=== PATIENT | female | born 1940 | race Caucasian/White ===

== ENCOUNTER 2018-07-15 06:59 | Day surgery (SDC) | payer MEDICARE, OTHER ==
[2018-07-15 07:36] VITALS: BMI 27.8
--- NOTE | 2018-07-15 09:02 | RAD ---
LUMBAR SPINE FOUR VIEWS INCLUDING FLEXION AND EXTENSION STANDING VIEWS: History: Lumbar spondylolisthesis and radiculopathy. FINDINGS: Dorsal column stimulator leads are noted extending up into the thoracic spines. There is severe multi level disc osteophytosis and facet arthrosis. There is severe anterolisthesis of L4 on L5, possibly v ivan slightly worse with flexion and extension. Stable anterolisthesis of C3 on C4. IMPRESSION: Grade 1 anterolisthesis of L4 on L5 showing very little difference, slightly more prominent anterolis thesis in flexion and extension. Stable anterolisthesis of L3 on L4. Lumbar spondylosis. Dorsal colum n stimulator lead. POS: TPC
[2018-07-15] MEDS ORDERED: Iopamidol-M 200 41% 20 ML VIAL ONE (10:28)
--- NOTE | 2018-07-15 11:25 | CT ---
CT LUMBAR SPINE WITH CONTRAST: (CT LUMBAR MYELOGRAM) Date: 07/15/18 HISTORY: 77-year-old female with low back pain and left lumbar radiculopathy. FINDINGS: There are five lumbar-type vertebrae. Vertebral body heights are maintained. No high grade scoliosis. Incidental finding of tiny calcified gallstone. Conus medullaris terminates at L1-2. Dorsal column s cristian cord stimulator leads enter the spinal canal at T12-L1, and ascend along the posterior epidural space. The lower portion of the spinal cord from lower T11 to the conus, has normal diameter, shape, and position. T11-12: Moderate disc space narrowing. Mild disc bulge. No high grade central stenosis. Mild to mode rate right neural foraminal stenosis. No left neural foraminal stenosis. T12-L1: Normal. L1-2: Normal. Conus medullaris terminates at this level. L2-3: No central stenosis. Disc space maintained. Mild bilateral neural foraminal stenosis, right gr eater than left. L3-4: Severe bilateral degenerative facet disease causes a Grade I anterolisthesis of L3 on L4. No s pondylolysis. Diffuse disc bulge. Mild to moderate disc space narrowing. Moderate ligamentum flavum t hickening. Moderate central spinal canal stenosis. Moderate bilateral neural foraminal stenosis. L4-5: Severe bilateral degenerative facet disease. There is no pars defect on the right side, but th ere is a pars interarticularis defect on the left. There is Grade II anterolisthesis of L4 on L5, whi ch appears to be due mainly to the severe facet DJD. Vacuum disc phenomenon. End plate irregularity a nd sclerosis. Moderate-severe right neural foraminal stenosis, superiorly displacing and mildly defor ladonna the exiting right L3 nerve root. Severe left neural foraminal stenosis with superior displacemen t and deformation of the exiting left L4 nerve root. The central spinal canal and thecal sac stenosis is mild to moderate. Ventral aspect of thecal sac is asymmetrically more effaced on the right side t roman the left. There is a left hemilaminotomy defect. L5-S1: Disc space is maintained. No neural foraminal stenosis. No central stenosis. The facet DJD is mild. This level is essentially normal. IMPRESSION: 1. Grade II spondylolisthesis at L4-5 where there is severe bilateral facet osteoarthrosis and unila teral left L4 spondylolysis. 2. Moderate to severe right neural foraminal stenosis and severe left neural foraminal stenosis at L 4-5, with impingement on both bilateral L4 exiting nerve roots, especially the left. 3. Grade I spondylolisthesis at L3-4 due to severe facet osteoarthrosis at that level. 4. Moderate central spinal canal stenosis at L3-4 and mild to moderate central spinal canal stenosis at L4-5. 5. Dorsal column spinal cord stimulator. 6. Incidental finding of mild cholelithiasis. POS: DENISSE
--- NOTE | 2018-07-15 11:46 | RAD ---
MYELOGRAM LUMBAR: Date: 07/15/18 HISTORY: 77-year-old female with low back pain and lumbar radiculopathy. TECHNIQUE: Signed, informed consent obtained. Patient placed prone SPANISH position on fluoroscopy table, after scou t radiographs including flexion and extension views, were obtained. Skin of lower back was prepared a nd draped in the usual sterile fashion. 25 gauge needle was used to apply buffered lidocaine. 22 gaug e spinal needle advanced from right paramedian approach at L2-3 level under brief, intermittent fluor oscopy. Upon return of clear CSF, a total of 10 mL of Isovue-M [id number] was injected intrathecally. Needle was removed. The patient tolerated the procedure well. No complications. Total fluoroscopy time: 2.3 minutes IMPRESSION: 1. Successful lumbar myelogram. 2. See separate report of CT myelogram. POS: ROJELIO
== END 2018-07-15 09:55 | disposition home or self-care (01) ==
LOC: RAD 06:59 → EDSTATUS 08:00 → RAD 09:55
PROVIDERS: ATTEND Surgery
PROC: B01B1ZZ Fluoroscopy of Spinal Cord using Low Osmolar Contrast (ICD-10-PCS; principal; 2018-07-15)
DX: M43.16 Spondylolisthesis, lumbar region (principal); M47.26 Other spondylosis with radiculopathy, lumbar region; M48.061 Spinal stenosis, lumbar region without neurogenic claudication; Z79.02 Long term (current) use of antithrombotics/antiplatelets; Z79.82 Long term (current) use of aspirin; Z79.899 Other long term (current) drug therapy; Z95.1 Presence of aortocoronary bypass graft; Z95.5 Presence of coronary angioplasty implant and graft; Z96.89 Presence of other specified functional implants; Z98.890 Other specified postprocedural states
CPT/HCPCS: 62304; 72120; 72132; Q9966

== ENCOUNTER 2018-09-10 00:09 | Outpatient (CLI) | payer MEDICARE, OTHER ==
[2018-09-10 14:08] LABS: Hemoglobin 14.1 g/dL (12.0-16.0); Mean Corpuscular HGB CONC 32.9 g/dL (32.0-36.0); Mean Corpuscular Hemoglobin 34.3 pg (27.0-31.0); Mean Platelet Volume 6.8 fL (7.4-10.4); Platelet Count 390 thou/uL (130-400); Red Blood Cell (RBC) Count 4.11 mill/uL (4.20-5.40); White Blood Cell (WBC) Count 8.1 thou/uL (4.8-10.8)
[2018-09-10 14:17] LABS: PTT 34.6 SEC (22.9-36.1); Prothrombin Time 13.6 SEC (12.0-14.7)
[2018-09-10 14:37] LABS: Anion Gap 13 mmol/L (10-20); BUN (Urea Nitrogen) 20 mg/dL (9.8-20.1); Calc. Creatinine Clearance 0 mL/min (70-130); Calcium 10.1 mg/dL (7.8-10.44); Carbon Dioxide 27 mmol/L (23-31); Chloride 106 mmol/L (98-107); Estimated GFR-MDRD 65; Glucose 76 mg/dL (83-110); Sodium 142 mmol/L (136-145)
== END 2018-09-10 00:10 | disposition home or self-care (01) ==
LOC: LABBT 00:09
PROVIDERS: ATTEND Surgery
DX: Z01.812 Encounter for preprocedural laboratory examination (principal); M54.16 Radiculopathy, lumbar region; M48.061 Spinal stenosis, lumbar region without neurogenic claudication
CPT/HCPCS: 80048; 85027; 85610; 85730; 87081

== ENCOUNTER 2018-09-10 12:00 | Inpatient (IN) | payer MEDICARE, OTHER ==
[2018-09-10 12:37] VITALS: BMI 28.0
[2018-09-17] MEDS ORDERED: Sodium Chloride 0.9% 10 ML ONE (10:30)
[2018-09-17] MEDS ORDERED: Thrombin 5000 UNITS/5 ML VIAL ONE ×2 (10:30→13:12)
[2018-09-17] MEDS ORDERED: Bacitracin Zinc Ointment 30 gm TUBE ONE (10:30)
[2018-09-17] MEDS ORDERED: Fentanyl 250 MCG/5 ML VIAL ONE (10:32)
[2018-09-17] MEDS ORDERED: Ketamine 50 MG/ML (10ML VIAL) ONE (10:32)
[2018-09-17] MEDS ORDERED: Albumin 5% 500 ML ONE (10:32)
[2018-09-17] MEDS ORDERED: Meperidine HCl/PF 25 MG/ML VIAL SLOW IVP PRN (14:43)
[2018-09-17] MEDS ORDERED: Morphine Sulfate 2 MG/ML SYRINGE SLOW IVP PRN (14:43)
[2018-09-17] MEDS ORDERED: Promethazine HCl 25 MG/ML VIAL SLOW IVP PRN (14:43)
[2018-09-17] MEDS ORDERED: Promethazine HCl 25 MG/ML VIAL IM PRN (14:43)
[2018-09-17] MEDS ORDERED: Ondansetron HCl/PF 4 MG/2 ML Vial IVP PRN (14:43)
[2018-09-17] MEDS ORDERED: HYDROmorphone 2 MG/ML VIAL SLOW IVP PRN (14:43)
[2018-09-17] MEDS ORDERED: PACU-Morphine 4MG/ML VIAL SLOW IVP PRN (14:43)
[2018-09-17] MEDS ORDERED: Glycopyrrolate 0.2 MG/ML 5 ML SYRINGE ONE (15:24)
[2018-09-17] MEDS ORDERED: Lidocaine 1% PF 5 ML VIAL ONE (15:24)
[2018-09-17] MEDS ORDERED: Metoclopramide HCl 10 MG/2 ML VIAL ONE (15:24)
[2018-09-17] MEDS ORDERED: Ondansetron PF 4 MG/2 ML Vial ONE (15:24)
[2018-09-17] MEDS ORDERED: ePHEDrine 50 MG/ML VIAL ONE (15:24)
[2018-09-17] MEDS ORDERED: Rocuronium Bromide 10 MG/ML (10ML VIAL) ONE (15:24)
[2018-09-17] MEDS ORDERED: PROPOFOL 200 MG/20 ML VIAL ONE (15:24)
[2018-09-17] MEDS ORDERED: Dexamethasone 20 MG/5 ML VIAL ONE (15:24)
[2018-09-17] MEDS ORDERED: Milk Of Magnesia 30 ML UDCUP PO PRN (15:29)
[2018-09-17] MEDS ORDERED: Promethazine HCl 25 MG/ML VIAL IVPB PRN (15:29)
[2018-09-17] MEDS ORDERED: Mag-Al 1200 mg/1200 mg/30 ML UDCUP PO PRN (15:29)
[2018-09-17] MEDS ORDERED: Bisacodyl 10 MG SUPP PR PRN (15:29)
[2018-09-17] MEDS ORDERED: Fleet Enema 133 ML BOT PR PRN (15:30)
[2018-09-17] MEDS ORDERED: Gabapentin 100 MG CAP PO PRN (15:33)
[2018-09-17] MEDS ORDERED: Fentanyl 100 MCG/2 ML VIAL ONE ×3 (15:41→18:21)
[2018-09-17] MEDS: CEFAZOLIN 2 GM in Premix Bag 1 BAG IVPB SCH (19:47)
[2018-09-17] MEDS: traMADol HCl 50 MG TAB PO PRN (20:18)
[2018-09-17] MEDS: Carvedilol 3.125 MG TAB PO SCH (20:18)
[2018-09-17] MEDS: clonazePAM 1 MG TAB PO SCH (20:18)
[2018-09-17] MEDS: Sodium Chloride 0.9% 1,000 ML IV SCH (20:19)
[2018-09-18] MEDS: CEFAZOLIN 2 GM in Premix Bag 1 BAG IVPB SCH ×4 (00:09→23:32)
[2018-09-18] MEDS: HYDROcodone/Acetaminophen 7.5/325 mg Tablet PO PRN ×3 (00:20→19:16)
[2018-09-18] MEDS: Sodium Chloride 0.9% 1,000 ML IV SCH ×2 (04:04→16:45)
[2018-09-18 05:45] LABS: Anion Gap 11 mmol/L (10-20); BUN (Urea Nitrogen) 16 mg/dL (9.8-20.1); Calc. Creatinine Clearance 63 mL/min (70-130); Carbon Dioxide 26 mmol/L (23-31); Chloride 106 mmol/L (98-107); Estimated GFR-MDRD 70; Glucose 111 mg/dL (83-110); Potassium 4.1 mmol/L (3.5-5.1); Sodium 139 mmol/L (136-145)
[2018-09-18 06:41] LABS: #Basophils 0.1 thou/uL (0.0-0.2); #Lymphocytes 1.3 thou/uL (1.20-3.40); #Neutrophils 10.1 thou/uL (1.40-6.50); %Basophils 0.6 % (0.0-1.0); %Eosinophils 0.1 % (0.0-10.0); %Lymphocytes 10.5 % (21.0-51.0); %Monocytes 7.9 % (0.0-10.0); %Neutrophils 80.8 % (42.0-75.0); Hemoglobin 9.5 g/dL (12.0-16.0); MDiff Complete? YES; Macrocytosis SLIGHT = 6-15 cells (100X) (0-5/hpf); Mean Corpuscular HGB CONC 32.7 g/dL (32.0-36.0); Mean Corpuscular Hemoglobin 34.6 pg (27.0-31.0); Platelet Count 261 thou/uL (130-400); RBC Distribution Width 12.7 % (11.5-14.5); Red Blood Cell (RBC) Count 2.76 mill/uL (4.20-5.40); White Blood Cell (WBC) Count 12.4 thou/uL (4.8-10.8)
[2018-09-18] MEDS: Floranex Packet PO SCH (09:41)
[2018-09-18] MEDS: Ezetimibe 10 MG TAB PO SCH (09:41)
[2018-09-18] MEDS: Loratadine 10 MG TAB PO SCH (09:42)
[2018-09-18] MEDS: Furosemide 20 MG TAB PO SCH (09:42)
[2018-09-18] MEDS: tiZANidine HCl 4 MG TAB PO PRN ×2 (09:42→22:10)
[2018-09-18] MEDS: Folic Acid 1 MG TAB PO SCH (09:42)
[2018-09-18] MEDS: Ascorbic Acid 500 mg Chewable Tablet PO SCH (09:42)
[2018-09-18] MEDS: traMADol HCl 50 MG TAB PO PRN (09:43)
--- NOTE | 2018-09-18 13:12 | PRG ---
DATE OF SERVICE: 09/18/2018 SUBJECTIVE: Ms. Vivar is now postoperative day #1 from L3-L5 decompression and fusion. She is doing well and up walking. She states she has had resolution in her leg pain. As expected, she has postoperative incisional pain. We will continue to mobilize her. Anticipate dismissal perhaps sometime this weekend. Job ID: [id number]
[2018-09-18] MEDS: Carvedilol 3.125 MG TAB PO SCH ×2 (14:57→19:54)
[2018-09-18] MEDS: Losartan 25 MG TAB PO SCH (14:57)
--- NOTE | 2018-09-18 15:34 | OP ---
DATE OF PROCEDURE: 09/17/2018 [employer]IVATE SECURITY GUARD: Sonny Ackerman PA-C PREPROCEDURE DIAGNOSIS: Lumbar stenosis with multilevel spondylolisthesis with low back and leg pain. POSTPROCEDURE DIAGNOSIS: Lumbar stenosis with multilevel spondylolisthesis with low back and leg pain. PROCEDURES PERFORMED: 1. L3-L4 laminectomy, partial facetectomy, and foraminotomies. 2. Bilateral L4-L5 revision, hemilaminotomy, foraminotomy for decompression of the nerve roots with removal of the pars bilaterally. 3. L3, L4, L5 posterior instrumented stabilization. 4. Posterior lateral fusion L3, L4, L5 with local bone autograft obtained from same incision allograft and BMP. DESCRIPTION OF PROCEDURE: After informed consent was obtained from the patient, the patient was brought to the OR. Proper patient, pause, and identification were carried out. She was placed under excellent endotracheal anesthesia and positioned prone on the OR table. All appropriate points were padded. We identified the L3, L4, L5 dorsal spines. Linear tuyet was made over this region. The prior incision was also identified. The midline lumbar wound following sterile cleansing, preparation and draping, we proceeded to the L3, L4, L5 segments. Localization film confirmed the area of interest following exposure of the L3, L4, L5 lamina, facet complexes in the transverse processes. We then performed L3-L4 laminectomies, partial facetectomies, and foraminotomies with bilateral revision of L3-L4 hemilaminotomies, foraminotomies, and removal of the pars to achieve complete decompression of the L4 nerve roots and the traversing L5 nerve roots. We should note that she had a left L4 spondylolysis and again, the pars was completely removed. We then placed with gross and fluoroscopic visualization pedicle screws at L3, L4, L5 with rods. Final tightening occurred. Copious irrigation occurred throughout as did maximizing hemostasis. The posterior lateral regions were then decorticated. Local bone autograft was obtained from same incision. Allograft and BMP were laid out to the sides bilaterally at L3, L4, L5, and we had excellent decompression and was pleased with stabilization. Copious irrigation occurred. We maximized the hemostasis. The wound was then closed in anatomic layers following sprinkling of vancomycin powder. The patient emerged from anesthesia. Job ID: [id number]
[2018-09-18] MEDS ORDERED: Sodium Chloride 0.9% 500 ML IVPB SCH (16:45)
[2018-09-18] MEDS: clonazePAM 1 MG TAB PO SCH (19:52)
--- NOTE | 2018-09-18 21:57 | PDOC.PN ---
- Subjective Encounter Start Date: 09/18/18 Encounter Start Time: 14:45 Subjective: pt up in bed complains of pain around her sugical site. - Objective Vital Signs & Weight: Vital Signs (12 hours) Temp Pulse Resp BP BP Pulse Ox 09/18/18 20:00 98.1 F 81 20 113/68 95 09/18/18 15:10 98 F 72 18 82/42 L 91 L 09/18/18 11:20 92 L 09/18/18 11:15 98.2 F 72 14 91/56 L 83 L Weight Weight 146 lb I&O: 09/17/18 09/18/18 09/19/18 06:59 06:59 06:59 Intake Total 1275 2050 Output Total 375 500 Balance 900 1550 Result Diagrams: 09/18/18 04:39 09/18/18 04:39 Phys Exam - Physical Examination Neck: no nodes, no JVD, supple, full ROM Respiratory: no wheezing, no rales, no rhonchi, wheezing present, clear to auscultation bilateral Cardiovascular: RRR, no significant murmur, no rub, gallop, irregular Gastrointestinal: soft, non-tender, no distention, positive bowel sounds Musculoskeletal: no edema, pulses present, edema present Dx/Plan (1) Hypertension Code(s): I10 - ESSENTIAL (PRIMARY) HYPERTENSION Status: Acute (2) Rheumatoid arteritis Code(s): 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 -: pt was give 500ml ns bolus and rate increased to 100cc/hr -: pain meds per surgery * . Review of Systems - Review of Systems Respiratory: negative: Cough, Dry, Shortness of Breath, Hemoptysis, SOB with Excertion, Pleuritic Pain, Sputum, Wheezing Cardiovascular: negative: chest pain, palpitations, orthopnea, paroxysmal nocturnal dyspnea, edema, light headedness, other Gastrointestinal: negative: Nausea, Vomiting, Abdominal Pain, Diarrhea, Constipation, Melena, Hematochezia, Other Genitourinary: negative: Dysuria, Frequency, Incontinence, Hematuria, Retention , Other - Medications/Allergies Allergies/Adverse Reactions: Allergies Allergy/AdvReac Type Severity Reaction Status Date / Time No Known Allergies Allergy Verified 09/17/18 20:10 Medications: Current Medications Acetaminophen (Tylenol) 650 mg PO Q4H PRN PRN Reason: Headache/Fever or Pain Acetaminophen/Codeine Phosphate (Tylenol #3) 1 tab PO Q3H PRN PRN Reason: Mild Pain (1-3) Hydrocodone Bitart/Acetaminophen ([place] 7.5/325) 2 tab PO Q4H PRN PRN Reason: Moderate Pain (4-6) Last Admin: 09/18/18 19:16 Dose: 2 tab Acidophilus (Floranex) 1 gm PO DAILY [facility] Last Admin: 09/18/18 09:41 Dose: 1 gm Al Hydroxide/Mg Hydroxide (Maalox) 30 ml PO Q4H PRN PRN Reason: Indigestion Ascorbic Acid (Vitamin C) 1,000 mg PO DAILY [facility] Last Admin: 09/18/18 09:42 Dose: 1,000 mg Bisacodyl (Dulcolax) [address] Q12H PRN PRN Reason: Constipation Carvedilol (Coreg) 6.25 mg PO BID [facility] Last Admin: 09/18/18 19:54 Dose: Not Given Citalopram Hydrobromide (Celexa) 20 mg PO DAILY [facility] Clonazepam (Klonopin) 3 mg PO HS [facility] Last Admin: 09/18/18 19:52 Dose: 3 mg Ezetimibe (Zetia) 10 mg PO DAILY [facility] Last Admin: 09/18/18 09:41 Dose: 10 mg Folic Acid (Folvite) 1 mg PO DAILY [facility] Last Admin: 09/18/18 09:42 Dose: 1 mg Furosemide (Lasix) 20 mg PO DAILY [facility] Last Admin: 09/18/18 09:42 Dose: 20 mg Gabapentin (Neurontin) 100 mg PO HS PRN PRN Reason: Pain Cefazolin Sodium/Dextrose 2 gm (/ Device) 50 mls @ 100 mls/hr IVPB Q8H [facility] Stop: 09/19/18 15:31 Last Admin: 09/18/18 15:17 Dose: 50 mls Sodium Chloride (Normal Saline 0.9%) 1,000 mls @ 100 mls/hr IV .Q10H [facility] Last Admin: 09/18/18 16:45 Dose: 1,000 mls Loratadine (Claritin) 10 mg PO DAILY [facility] Last Admin: 09/18/18 09:42 Dose: 10 mg Losartan Potassium (Cozaar) 50 mg PO DAILY [facility] Last Admin: 09/18/18 14:57 Dose: Not Given Magnesium Hydroxide (Milk Of Magnesium) 30 ml PO Q12H PRN PRN Reason: Constipation Morphine Sulfate (Morphine) 2 mg SLOW IVP Q1H PRN PRN Reason: Severe Pain (7-10) Pantoprazole Sodium (Protonix) 40 mg PO DAILY [facility] Last Admin: 09/18/18 09:41 Dose: 40 mg Promethazine HCl (Phenergan) 12.5 mg IVPB Q4H PRN PRN Reason: Nausea/Vomiting Sodium Biphosphate/Sodium Phosphate (Fleet Enema) [address] 1530 PRN PRN Reason: Constipation Sodium Chloride (Flush - Normal Saline) 10 ml IVF PRN PRN PRN Reason: Saline Flush Tizanidine HCl (Zanaflex) 4 mg PO TID PRN PRN Reason: Muscle Spasm Last Admin: 09/18/18 09:42 Dose: 4 mg Tramadol HCl (Ultram) 50 mg PO Q6H PRN PRN Reason: Mild Pain (1-3) Last Admin: 09/18/18 09:43 Dose: 50 mg
[2018-09-19] MEDS: HYDROcodone/Acetaminophen 7.5/325 mg Tablet PO PRN (03:37)
[2018-09-19] MEDS: tiZANidine HCl 4 MG TAB PO PRN (06:42)
[2018-09-19] MEDS: CEFAZOLIN 2 GM in Premix Bag 1 BAG IVPB SCH ×2 (07:15→15:30)
[2018-09-19] MEDS: Citalopram 20 MG TAB PO SCH ×2 (07:48→09:07)
[2018-09-19 07:53] LABS: #Basophils 0.1 thou/uL (0.0-0.2); #Eosinphils 0.2 thou/uL (0.0-0.7); #Lymphocytes 3.3 thou/uL (1.20-3.40); #Monocytes 1.1 thou/uL (0.11-0.59); #Neutrophils 5.2 thou/uL (1.40-6.50); %Basophils 1.1 % (0.0-1.0); %Eosinophils 2.5 % (0.0-10.0); %Lymphocytes 33.3 % (21.0-51.0); %Monocytes 10.9 % (0.0-10.0); %Neutrophils 52.3 % (42.0-75.0); Hemoglobin 8.5 g/dL (12.0-16.0); Mean Corpuscular HGB CONC 31.5 g/dL (32.0-36.0); Mean Corpuscular Hemoglobin 33.5 pg (27.0-31.0); Platelet Count 222 thou/uL (130-400); Red Blood Cell (RBC) Count 2.53 mill/uL (4.20-5.40)
--- NOTE | 2018-09-19 08:08 | PRG ---
DATE OF SERVICE: 09/19/2018 SUBJECTIVE: I saw Ms. Vivar in her hospital room this morning. She is 2 days out from a lumbar decompression and fusion. She still has a Fabian in place. She had a reasonable night overnight. She is sore from her surgery, but feels as though her legs have improved. OBJECTIVE: Ms. Vivar had a bit of a low blood pressure at 90/54 at midnight, this came up a bit this morning to the 100s. Her other vital signs have been stable. Lower extremity examination does not show any new neurological deficit and her dressing is dry. ASSESSMENT AND PLAN: My plan for Ms. Vivar is to ensure that she can get in and out of bed safely and use at least the bedside commode or walk to the bathroom before removing her Fabian. Once the Fabian is out, she becomes independent for activities of daily living, then she would be ready for discharge. If that happens this afternoon, we will make arrangements for that. If she needs another day to work on her independence, we will keep her. Job ID: [id number]
[2018-09-19] MEDS: Folic Acid 1 MG TAB PO SCH (09:07)
[2018-09-19] MEDS: Ezetimibe 10 MG TAB PO SCH (09:07)
[2018-09-19] MEDS: Ascorbic Acid 500 mg Chewable Tablet PO SCH (09:07)
[2018-09-19] MEDS: Furosemide 20 MG TAB PO SCH (09:07)
[2018-09-19] MEDS: Loratadine 10 MG TAB PO SCH (09:07)
[2018-09-19] MEDS: Floranex Packet PO SCH (09:07)
[2018-09-19] MEDS: Sodium Chloride 0.9% 1,000 ML IV SCH (09:16)
--- NOTE | 2018-09-19 10:21 | PDOC.PN ---
- Subjective Encounter Start Date: 09/19/18 Encounter Start Time: 08:20 Patient seen and examined. No new complaints. No overnight events - Objective MAR Reviewed: Yes Vital Signs & Weight: Vital Signs (12 hours) Temp Pulse Resp BP Pulse Ox 09/19/18 08:15 98.4 F 76 15 91/58 L 93 L 09/19/18 03:50 98.3 F 90 20 103/65 95 09/18/18 23:44 98.5 F 80 18 90/54 L 96 Weight Weight 146 lb I&O: 09/18/18 09/19/18 09/20/18 06:59 06:59 06:59 Intake Total 1275 3490 Output Total 375 900 Balance 900 2590 Result Diagrams: 09/19/18 07:24 09/18/18 04:39 Phys Exam - Physical Examination Constitutional: NAD HEENT: PERRLA, moist MMs, sclera anicteric Neck: no JVD, supple Respiratory: no wheezing, no rales, no rhonchi Cardiovascular: RRR, no significant murmur, no rub Gastrointestinal: soft, non-tender, no distention, positive bowel sounds Musculoskeletal: no edema, pulses present Neurological: non-focal, normal sensation Lymphatic: no nodes Psychiatric: normal affect Skin: no rash, normal turgor Dx/Plan (1) S/P lumbar laminectomy Code(s): Z98.890 - OTHER SPECIFIED POSTPROCEDURAL STATES Status: Acute (2) Anxiety and depression Code(s): F41.9 - ANXIETY DISORDER, UNSPECIFIED; F32.9 - MAJOR DEPRESSIVE DISORDER, SINGLE EPISODE, UNSPECIFIED Status: Chronic (3) CAD (coronary artery disease) Code(s): I25.10 - ATHSCL HEART DISEASE OF [place] CORONARY ARTERY W/O ANG PCTRS Status: Chronic (4) COPD (chronic obstructive pulmonary disease) Status: Chronic (5) GERD (gastroesophageal reflux disease) Code(s): K21.9 - GASTRO-ESOPHAGEAL REFLUX DISEASE WITHOUT ESOPHAGITIS Status: Chronic (6) Hypertension Code(s): I10 - ESSENTIAL (PRIMARY) HYPERTENSION Status: Chronic (7) Macrocytic anemia Code(s): D53.9 - NUTRITIONAL ANEMIA, UNSPECIFIED Status: Chronic (8) Rheumatoid arthritis Code(s): M06.9 - RHEUMATOID ARTHRITIS, UNSPECIFIED Status: Chronic - Plan cont current plan of care, PT/OT * medication reviewed as below * symptomatic treatment * pain control * medically stable * continue gentle IVF * hold BP meds for SBP <120. * code status- full code * continue selected home meds Review of Systems - Review of Systems Constitutional: negative: fever, chills, sweats, weakness, malaise, other ENT: negative: Ear Pain, Ear Discharge, Nose Pain, Nose Discharge, Nose Congestion, Mouth Pain, Mouth Swelling, Throat Pain, Throat Swelling, Other Respiratory: negative: Cough, Dry, Shortness of Breath, Hemoptysis, SOB with Excertion, Pleuritic Pain, Sputum, Wheezing Cardiovascular: negative: chest pain, palpitations, orthopnea, paroxysmal nocturnal dyspnea, edema, light headedness, other Gastrointestinal: negative: Nausea, Vomiting, Abdominal Pain, Diarrhea, Constipation, Melena, Hematochezia, Other Genitourinary: negative: Dysuria, Frequency, Incontinence, Hematuria, Retention , Other Musculoskeletal: Back Pain. negative: Neck Pain, Shoulder Pain, Arm Pain, Hand Pain, Leg Pain, Foot Pain, Other - Medications/Allergies Allergies/Adverse Reactions: Allergies Allergy/AdvReac Type Severity Reaction Status Date / Time No Known Allergies Allergy Verified 09/17/18 20:10 Medications: Current Medications Acetaminophen (Tylenol) 650 mg PO Q4H PRN PRN Reason: Headache/Fever or Pain Acetaminophen/Codeine Phosphate (Tylenol #3) 1 tab PO Q3H PRN PRN Reason: Mild Pain (1-3) Hydrocodone Bitart/Acetaminophen ([place] 7.5/325) 2 tab PO Q4H PRN PRN Reason: Moderate Pain (4-6) Last Admin: 09/19/18 03:37 Dose: 2 tab Acidophilus (Floranex) 1 gm PO DAILY [facility] Last Admin: 09/19/18 09:07 Dose: 1 gm Al Hydroxide/Mg Hydroxide (Maalox) 30 ml PO Q4H PRN PRN Reason: Indigestion Ascorbic Acid (Vitamin C) 1,000 mg PO DAILY [facility] Last Admin: 09/19/18 09:07 Dose: 1,000 mg Bisacodyl (Dulcolax) 10 mg MD Q12H PRN PRN Reason: Constipation Carvedilol (Coreg) 6.25 mg PO BID [facility] Last Admin: 09/18/18 19:54 Dose: Not Given Citalopram Hydrobromide (Celexa) 20 mg PO DAILY [facility] Last Admin: 09/19/18 09:07 Dose: 20 mg Clonazepam (Klonopin) 3 mg PO HS [facility] Last Admin: 09/18/18 19:52 Dose: 3 mg Ezetimibe (Zetia) 10 mg PO DAILY [facility] Last Admin: 09/19/18 09:07 Dose: 10 mg Folic Acid (Folvite) 1 mg PO DAILY [facility] Last Admin: 09/19/18 09:07 Dose: 1 mg Furosemide (Lasix) 20 mg PO DAILY [facility] Last Admin: 09/19/18 09:07 Dose: 20 mg Gabapentin (Neurontin) 100 mg PO HS PRN PRN Reason: Pain Cefazolin Sodium/Dextrose 2 gm (/ Device) 50 mls @ 100 mls/hr IVPB Q8H [facility] Stop: 09/19/18 15:31 Last Admin: 09/19/18 07:15 Dose: 50 mls Sodium Chloride (Normal Saline 0.9%) 1,000 mls @ 100 mls/hr IV .Q10H [facility] Last Admin: 09/19/18 09:16 Dose: 1,000 mls Loratadine (Claritin) 10 mg PO DAILY [facility] Last Admin: 09/19/18 09:07 Dose: 10 mg Losartan Potassium (Cozaar) 50 mg PO DAILY [facility] Last Admin: 09/18/18 14:57 Dose: Not Given Magnesium Hydroxide (Milk Of Magnesium) 30 ml PO Q12H PRN PRN Reason: Constipation Morphine Sulfate (Morphine) 2 mg SLOW IVP Q1H PRN PRN Reason: Severe Pain (7-10) Pantoprazole Sodium (Protonix) 40 mg PO DAILY [facility] Last Admin: 09/19/18 09:07 Dose: 40 mg Promethazine HCl (Phenergan) 12.5 mg IVPB Q4H PRN PRN Reason: Nausea/Vomiting Sodium Biphosphate/Sodium Phosphate (Fleet Enema) 133 ml MD 1530 PRN PRN Reason: Constipation Sodium Chloride (Flush - Normal Saline) 10 ml IVF PRN PRN PRN Reason: Saline Flush Tizanidine HCl (Zanaflex) 4 mg PO TID PRN PRN Reason: Muscle Spasm Last Admin: 09/19/18 06:42 Dose: 4 mg Tramadol HCl (Ultram) 50 mg PO Q6H PRN PRN Reason: Mild Pain (1-3) Last Admin: 09/18/18 09:43 Dose: 50 mg
[2018-09-19] MEDS: Ketorolac Tromethamine 30 MG/ML VIAL IVP PRN ×2 (15:29→22:39)
[2018-09-19] MEDS: Acetaminophen 325 MG TAB PO PRN (15:36)
[2018-09-19] MEDS: clonazePAM 1 MG TAB PO SCH (22:10)
[2018-09-20] MEDS: Acetaminophen 325 MG TAB PO PRN ×3 (01:28→17:47)
[2018-09-20] MEDS: clonazePAM 1 MG TAB PO SCH ×2 (01:32→20:50)
[2018-09-20] MEDS: traMADol HCl 50 MG TAB PO PRN (03:51)
[2018-09-20] MEDS: Floranex Packet PO SCH (08:30)
[2018-09-20] MEDS: Ezetimibe 10 MG TAB PO SCH (08:30)
[2018-09-20] MEDS: Ascorbic Acid 500 mg Chewable Tablet PO SCH (08:30)
[2018-09-20] MEDS: Loratadine 10 MG TAB PO SCH (08:31)
[2018-09-20] MEDS: Citalopram 20 MG TAB PO SCH (08:31)
[2018-09-20] MEDS: Folic Acid 1 MG TAB PO SCH (08:31)
[2018-09-20] MEDS: Furosemide 20 MG TAB PO SCH (08:31)
[2018-09-20] MEDS: Ketorolac Tromethamine 30 MG/ML VIAL IVP PRN ×2 (08:31→17:46)
--- NOTE | 2018-09-20 09:00 | PDOC.PN ---
- Subjective Encounter Start Date: 09/20/18 Encounter Start Time: 08:25 Patient seen and examined. No new complaints. No overnight events - Objective Resuscitation Status - Order Detail: 09/19/18 10:21 Resuscitation Status Routine Resuscitation Status: FULL: Full Resuscitation MAR Reviewed: Yes Vital Signs & Weight: Vital Signs (12 hours) Temp Pulse Resp BP BP Pulse Ox 09/20/18 08:48 92 L 09/20/18 08:46 125 H 20 92 L 09/20/18 08:04 98.4 F 88 16 137/78 91 L 09/20/18 04:11 98.7 F 96 18 148/71 H 92 L 09/20/18 00:30 99.9 F H 84 16 115/63 94 L 09/19/18 22:00 96 Weight Weight 146 lb I&O: 09/19/18 09/20/18 09/21/18 06:59 06:59 06:59 Intake Total 3490 1170 Output Total 900 2000 Balance 2590 -830 Result Diagrams: 09/19/18 07:24 09/18/18 04:39 Phys Exam - Physical Examination Constitutional: NAD HEENT: PERRLA, moist MMs, sclera anicteric Neck: no JVD, supple Respiratory: no wheezing, no rales, no rhonchi Cardiovascular: RRR, no significant murmur, no rub Gastrointestinal: soft, non-tender, no distention, positive bowel sounds Musculoskeletal: no edema, pulses present Neurological: non-focal, normal sensation Lymphatic: no nodes Psychiatric: normal affect Skin: no rash, normal turgor Dx/Plan (1) S/P lumbar laminectomy Code(s): Z98.890 - OTHER SPECIFIED POSTPROCEDURAL STATES Status: Acute (2) Anxiety and depression Code(s): F41.9 - ANXIETY DISORDER, UNSPECIFIED; F32.9 - MAJOR DEPRESSIVE DISORDER, SINGLE EPISODE, UNSPECIFIED Status: Chronic (3) CAD (coronary artery disease) Code(s): I25.10 - ATHSCL HEART DISEASE OF [place] CORONARY ARTERY W/O ANG PCTRS Status: Chronic (4) COPD (chronic obstructive pulmonary disease) Status: Chronic (5) GERD (gastroesophageal reflux disease) Code(s): K21.9 - GASTRO-ESOPHAGEAL REFLUX DISEASE WITHOUT ESOPHAGITIS Status: Chronic (6) Hypertension Code(s): I10 - ESSENTIAL (PRIMARY) HYPERTENSION Status: Chronic (7) Macrocytic anemia Code(s): D53.9 - NUTRITIONAL ANEMIA, UNSPECIFIED Status: Chronic (8) Rheumatoid arthritis Code(s): M06.9 - RHEUMATOID ARTHRITIS, UNSPECIFIED Status: Chronic - Plan cont current plan of care, PT/OT * medication reviewed as below * symptomatic treatment * pain control * medically stable * may need rehab placement. Review of Systems - Review of Systems Eyes: negative: Pain, Vision Change, Conjunctivae Inflammation, Eyelid Inflammation, Redness, Other ENT: negative: Ear Pain, Ear Discharge, Nose Pain, Nose Discharge, Nose Congestion, Mouth Pain, Mouth Swelling, Throat Pain, Throat Swelling, Other Respiratory: negative: Cough, Dry, Shortness of Breath, Hemoptysis, SOB with Excertion, Pleuritic Pain, Sputum, Wheezing Cardiovascular: negative: chest pain, palpitations, orthopnea, paroxysmal nocturnal dyspnea, edema, light headedness, other Gastrointestinal: negative: Nausea, Vomiting, Abdominal Pain, Diarrhea, Constipation, Melena, Hematochezia, Other Genitourinary: negative: Dysuria, Frequency, Incontinence, Hematuria, Retention , Other Musculoskeletal: Back Pain. negative: Neck Pain, Shoulder Pain, Arm Pain, Hand Pain, Leg Pain, Foot Pain, Other - Medications/Allergies Allergies/Adverse Reactions: Allergies Allergy/AdvReac Type Severity Reaction Status Date / Time No Known Allergies Allergy Verified 09/17/18 20:10 Medications: Current Medications Acetaminophen (Tylenol) 650 mg PO Q4H PRN PRN Reason: Headache/Fever or Pain Last Admin: 09/20/18 08:30 Dose: 650 mg Acetaminophen/Codeine Phosphate (Tylenol #3) 1 tab PO Q3H PRN PRN Reason: Mild Pain (1-3) Hydrocodone Bitart/Acetaminophen ([place] 7.5/325) 2 tab PO Q4H PRN PRN Reason: Moderate Pain (4-6) Last Admin: 09/19/18 03:37 Dose: 2 tab Acidophilus (Floranex) 1 gm PO DAILY [facility] Last Admin: 09/20/18 08:30 Dose: 1 gm Al Hydroxide/Mg Hydroxide (Maalox) 30 ml PO Q4H PRN PRN Reason: Indigestion Albuterol/Ipratropium (Duoneb) 3 ml NEB M3ES-VH PRN PRN Reason: SOB &/or Wheezing Last Admin: 09/20/18 08:46 Dose: 3 ml Ascorbic Acid (Vitamin C) 1,000 mg PO DAILY [facility] Last Admin: 09/20/18 08:30 Dose: 1,000 mg Bisacodyl (Dulcolax) 10 mg IA Q12H PRN PRN Reason: Constipation Carvedilol (Coreg) 6.25 mg PO BID [facility] Last Admin: 09/18/18 19:54 Dose: Not Given Citalopram Hydrobromide (Celexa) 20 mg PO DAILY [facility] Last Admin: 09/20/18 08:31 Dose: 20 mg Clonazepam (Klonopin) 3 mg PO HS [facility] Last Admin: 09/20/18 01:32 Dose: 3 mg Ezetimibe (Zetia) 10 mg PO DAILY [facility] Last Admin: 09/20/18 08:30 Dose: 10 mg Folic Acid (Folvite) 1 mg PO DAILY [facility] Last Admin: 09/20/18 08:31 Dose: 1 mg Furosemide (Lasix) 20 mg PO DAILY [facility] Last Admin: 09/20/18 08:31 Dose: 20 mg Gabapentin (Neurontin) 100 mg PO HS PRN PRN Reason: Pain Ketorolac Tromethamine (Toradol) 15 mg IVP Q6H PRN PRN Reason: Pain Stop: 09/24/18 11:42 Last Admin: 09/20/18 08:31 Dose: 15 mg Loratadine (Claritin) 10 mg PO DAILY [facility] Last Admin: 09/20/18 08:31 Dose: 10 mg Losartan Potassium (Cozaar) 50 mg PO DAILY [facility] Last Admin: 09/18/18 14:57 Dose: Not Given Magnesium Hydroxide (Milk Of Magnesium) 30 ml PO Q12H PRN PRN Reason: Constipation Morphine Sulfate (Morphine) 2 mg SLOW IVP Q1H PRN PRN Reason: Severe Pain (7-10) Pantoprazole Sodium (Protonix) 40 mg PO DAILY [facility] Last Admin: 09/20/18 08:30 Dose: 40 mg Promethazine HCl (Phenergan) 12.5 mg IVPB Q4H PRN PRN Reason: Nausea/Vomiting Sodium Biphosphate/Sodium Phosphate (Fleet Enema) 133 ml IA 1530 PRN PRN Reason: Constipation Sodium Chloride (Flush - Normal Saline) 10 ml IVF PRN PRN PRN Reason: Saline Flush Tizanidine HCl (Zanaflex) 4 mg PO TID PRN PRN Reason: Muscle Spasm Last Admin: 09/19/18 06:42 Dose: 4 mg Tramadol HCl (Ultram) 50 mg PO Q6H PRN PRN Reason: Mild Pain (1-3) Last Admin: 09/20/18 03:51 Dose: 50 mg
--- NOTE | 2018-09-20 09:47 | PRG ---
DATE OF SERVICE: 09/20/2018 SUBJECTIVE: I saw Ms. Vivar this morning in her hospital room. She had just gotten back from a trip to the bathroom. She is lying in bed and short of breath to her recent exercise. She is anxious and she has pain in her low back. Today, she has some pain in her neck, it is in the back of her neck and the front of her neck. She cannot converse too well as she is still a little bit short of breath. OBJECTIVE: VITAL SIGNS: Pulse currently of 125. No fevers are recorded overnight. Her blood pressures have been 130s to 140s. GENERAL: On examination, Ms. Vivar looks short of breath. She has good motor function in the upper and lower extremities. Has good sensation all the way to the toes. PLAN: Plan for Ms. Vivar is to get a troponin and EKG. We will get some chemistries as well as the CBC. We will make sure this is not a cardiac event and it is the shortness of breath related to pain and anxiety. However, if the troponins are positive, we will need Cardiology support for her management. Otherwise, Ms. Vivar was doing well yesterday. I do not think she is ready for discharge today. Hopefully, we can get her pain under better control, gently do some therapy today and push for independence in activities of daily living before discharge. Job ID: [id number]
[2018-09-20 10:09] LABS: CKMB 2.4 ng/mL (0-6.6)
--- NOTE | 2018-09-20 10:35 | ULT ---
EXAM: Bilateral lower extremity venous Doppler PROVIDED CLINICAL HISTORY: Immobility, risk for DVT, recent surgery FINDINGS: Grayscale and color Doppler sonography with spectral analysis was performed of the common femoral, fe moral, popliteal, posterior tibial, greater saphenous and profunda femoral veins bilaterally. The evaluated venous structures demonstrate a normal sonographic appearance. IMPRESSION: No sonographic evidence for lower extremity deep venous thrombosis.
[2018-09-20] MEDS ORDERED: Sodium Chloride 0.9% 1,000 ML IV SCH (11:45)
[2018-09-21] MEDS: Acetaminophen/Codeine 30-300mg Tablet PO PRN ×2 (02:11→07:35)
[2018-09-21] MEDS: Ketorolac Tromethamine 30 MG/ML VIAL IVP PRN (02:11)
[2018-09-21] MEDS: Ezetimibe 10 MG TAB PO SCH (07:34)
[2018-09-21] MEDS: Folic Acid 1 MG TAB PO SCH (07:35)
[2018-09-21] MEDS: Loratadine 10 MG TAB PO SCH (07:35)
[2018-09-21] MEDS: Citalopram 20 MG TAB PO SCH (07:35)
[2018-09-21] MEDS: Ascorbic Acid 500 mg Chewable Tablet PO SCH (07:35)
[2018-09-21 08:31] LABS: #Basophils 0.1 thou/uL (0.0-0.2); #Eosinphils 0.6 thou/uL (0.0-0.7); #Lymphocytes 2.4 thou/uL (1.20-3.40); %Basophils 0.6 % (0.0-1.0); %Eosinophils 4.5 % (0.0-10.0); %Lymphocytes 18.4 % (21.0-51.0); %Monocytes 7.9 % (0.0-10.0); %Neutrophils 68.6 % (42.0-75.0); Hemoglobin 8.9 g/dL (12.0-16.0); Mean Corpuscular HGB CONC 32.1 g/dL (32.0-36.0); Mean Corpuscular Hemoglobin 33.8 pg (27.0-31.0); Platelet Count 283 thou/uL (130-400); RBC Distribution Width 12.6 % (11.5-14.5); Red Blood Cell (RBC) Count 2.64 mill/uL (4.20-5.40); White Blood Cell (WBC) Count 13.1 thou/uL (4.8-10.8)
[2018-09-21 08:51] LABS: Anion Gap 10 mmol/L (10-20); BUN (Urea Nitrogen) 13 mg/dL (9.8-20.1); Calc. Creatinine Clearance 63 mL/min (70-130); Calcium 8.3 mg/dL (7.8-10.44); Carbon Dioxide 26 mmol/L (23-31); Chloride 107 mmol/L (98-107); Estimated GFR-MDRD 70; Glucose 83 mg/dL (83-110); Potassium 3.4 mmol/L (3.5-5.1); Sodium 140 mmol/L (136-145)
[2018-09-21] MEDS: Floranex Packet PO SCH (09:10)
[2018-09-21 09:18] LABS: CKMB 3.7 ng/mL (0-6.6)
[2018-09-21] MEDS ORDERED: ISOVUE-370 76%-LOCM 1 ML ONE (09:39)
[2018-09-21] MEDS: Carvedilol 3.125 MG TAB PO SCH ×2 (10:00→20:50)
[2018-09-21] MEDS: Furosemide 20 MG TAB PO SCH (10:01)
--- NOTE | 2018-09-21 10:36 | PRG ---
DATE OF SERVICE: 09/21/2018 This is Sonny Ackerman PA-C dictating a report for Curtis Mcgraw MD. SUBJECTIVE: Ms. Vivar is now postoperative day 3, having undergone multilevel lumbar laminectomy with fusion. The patient has had some shortness of breath and elevated troponin, therefore our Trauma colleagues have transitioned her to the telemetry floor and we will continue some workup. In regard to her low back surgery, the patient is overall improving. She does have back pain, but no leg pain. She has been on supplemental oxygen. She remains with good strength in the bilateral lower extremities and her lumbar wound dressing is dry. PLAN: We will continue medical workup for the patient's medical issues. Appreciate our Trauma colleagues helping with this. Otherwise, we will continue to monitor the patient. Please call with any changes in the patient's neurologic status. Job ID: [id number]
--- NOTE | 2018-09-21 12:07 | PDOC.PN ---
- Subjective Encounter Start Date: 09/21/18 Encounter Start Time: 08:15 Patient seen and examined. No new complaints. No overnight events - Objective Resuscitation Status - Order Detail: 09/19/18 10:21 Resuscitation Status Routine Resuscitation Status: FULL: Full Resuscitation MAR Reviewed: Yes Vital Signs & Weight: Vital Signs (12 hours) Temp Pulse Resp BP BP Pulse Ox 09/21/18 07:35 96 09/21/18 07:11 98.0 F 82 16 113/57 L 95 09/21/18 04:00 98.3 F 81 16 101/64 91 L Weight Weight 146 lb I&O: 09/20/18 09/21/18 09/22/18 06:59 06:59 06:59 Intake Total 1170 1905 Output Total 1999 1075 Balance -830 830 Result Diagrams: 09/21/18 08:21 09/21/18 08:20 Radiology Reviewed by me: Yes EKG Reviewed by me: Yes Phys Exam - Physical Examination Constitutional: NAD HEENT: PERRLA, moist MMs, sclera anicteric Neck: no JVD, supple Respiratory: no wheezing, no rales, no rhonchi Cardiovascular: RRR, no significant murmur, no rub Gastrointestinal: soft, non-tender, no distention, positive bowel sounds Musculoskeletal: no edema, pulses present Neurological: non-focal, normal sensation Lymphatic: no nodes Psychiatric: normal affect, A&O x 3 Skin: no rash, normal turgor Dx/Plan (1) Type [address] elevation Code(s): I21.A1 - MYOCARDIAL INFARCTION TYPE 2 Status: Acute (2) S/P lumbar laminectomy Code(s): Z98.890 - OTHER SPECIFIED POSTPROCEDURAL STATES Status: Acute (3) Anxiety and depression Code(s): F41.9 - ANXIETY DISORDER, UNSPECIFIED; F32.9 - MAJOR DEPRESSIVE DISORDER, SINGLE EPISODE, UNSPECIFIED Status: Chronic (4) CAD (coronary artery disease) Code(s): I25.10 - ATHSCL HEART DISEASE OF [place] CORONARY ARTERY W/O ANG PCTRS Status: Chronic (5) COPD (chronic obstructive pulmonary disease) Status: Chronic (6) GERD (gastroesophageal reflux disease) Code(s): K21.9 - GASTRO-ESOPHAGEAL REFLUX DISEASE WITHOUT ESOPHAGITIS Status: Chronic (7) Hypertension Code(s): I10 - ESSENTIAL (PRIMARY) HYPERTENSION Status: Chronic (8) Macrocytic anemia Code(s): D53.9 - NUTRITIONAL ANEMIA, UNSPECIFIED Status: Chronic (9) Rheumatoid arthritis Code(s): M06.9 - RHEUMATOID ARTHRITIS, UNSPECIFIED Status: Chronic - Plan cont current plan of care * transfer to tele * echo * CTA to rule out PE * cardiology consult * medication reviewed as below * symptomatic treatment. Review of Systems - Review of Systems ENT: negative: Ear Pain, Ear Discharge, Nose Pain, Nose Discharge, Nose Congestion, Mouth Pain, Mouth Swelling, Throat Pain, Throat Swelling, Other Respiratory: negative: Cough, Dry, Shortness of Breath, Hemoptysis, SOB with Excertion, Pleuritic Pain, Sputum, Wheezing Cardiovascular: negative: chest pain, palpitations, orthopnea, paroxysmal nocturnal dyspnea, edema, light headedness, other Gastrointestinal: negative: Nausea, Vomiting, Abdominal Pain, Diarrhea, Constipation, Melena, Hematochezia, Other Genitourinary: negative: Dysuria, Frequency, Incontinence, Hematuria, Retention , Other Musculoskeletal: negative: Neck Pain, Shoulder Pain, Arm Pain, Back Pain, Hand Pain, Leg Pain, Foot Pain, Other - Medications/Allergies Allergies/Adverse Reactions: Allergies Allergy/AdvReac Type Severity Reaction Status Date / Time No Known Allergies Allergy Verified 09/17/18 20:10 Medications: Current Medications Acetaminophen (Tylenol) 650 mg PO Q4H PRN PRN Reason: Headache/Fever or Pain Last Admin: 09/20/18 08:30 Dose: 650 mg Acetaminophen/Codeine Phosphate (Tylenol #3) 1 tab PO Q3H PRN PRN Reason: Mild Pain (1-3) Last Admin: 09/21/18 07:35 Dose: 1 tab Hydrocodone Bitart/Acetaminophen ([place] 7.5/325) 2 tab PO Q4H PRN PRN Reason: Moderate Pain (4-6) Last Admin: 09/19/18 03:37 Dose: 2 tab Acidophilus (Floranex) 1 gm PO DAILY [facility] Last Admin: 09/21/18 09:10 Dose: 1 gm Al Hydroxide/Mg Hydroxide (Maalox) 30 ml PO Q4H PRN PRN Reason: Indigestion Albuterol/Ipratropium (Duoneb) 3 ml NEB [id number] PRN PRN Reason: SOB &/or Wheezing Last Admin: 09/20/18 08:46 Dose: 3 ml Ascorbic Acid (Vitamin C) 1,000 mg PO DAILY [facility] Last Admin: 09/21/18 07:35 Dose: 1,000 mg Bisacodyl (Dulcolax) 10 mg NM Q12H PRN PRN Reason: Constipation Carvedilol (Coreg) 6.25 mg PO BID [facility] Last Admin: 09/21/18 10:00 Dose: Not Given Citalopram Hydrobromide (Celexa) 20 mg PO DAILY [facility] Last Admin: 09/21/18 07:35 Dose: 20 mg Clonazepam (Klonopin) 3 mg PO HS [facility] Last Admin: 09/20/18 20:50 Dose: 3 mg Ezetimibe (Zetia) 10 mg PO DAILY [facility] Last Admin: 09/21/18 07:34 Dose: 10 mg Folic Acid (Folvite) 1 mg PO DAILY [facility] Last Admin: 09/21/18 07:35 Dose: 1 mg Furosemide (Lasix) 20 mg PO DAILY [facility] Last Admin: 09/21/18 10:01 Dose: Not Given Gabapentin (Neurontin) 100 mg PO HS PRN PRN Reason: Pain Ketorolac Tromethamine (Toradol) 15 mg IVP Q6H PRN PRN Reason: Pain Stop: 09/24/18 11:42 Last Admin: 09/21/18 02:11 Dose: 15 mg Loratadine (Claritin) 10 mg PO DAILY [facility] Last Admin: 09/21/18 07:35 Dose: 10 mg Losartan Potassium (Cozaar) 50 mg PO DAILY [facility] Last Admin: 09/18/18 14:57 Dose: Not Given Magnesium Hydroxide (Milk Of Magnesium) 30 ml PO Q12H PRN PRN Reason: Constipation Morphine Sulfate (Morphine) 2 mg SLOW IVP Q1H PRN PRN Reason: Severe Pain (7-10) Pantoprazole Sodium (Protonix) 40 mg PO DAILY [facility] Last Admin: 09/21/18 07:34 Dose: 40 mg Promethazine HCl (Phenergan) 12.5 mg IVPB Q4H PRN PRN Reason: Nausea/Vomiting Sodium Biphosphate/Sodium Phosphate (Fleet Enema) 133 ml [place] 1530 PRN PRN Reason: Constipation Sodium Chloride (Flush - Normal Saline) 10 ml IVF PRN PRN PRN Reason: Saline Flush Tizanidine HCl (Zanaflex) 4 mg PO TID PRN PRN Reason: Muscle Spasm Last Admin: 09/19/18 06:42 Dose: 4 mg Tramadol HCl (Ultram) 50 mg PO Q6H PRN PRN Reason: Mild Pain (1-3) Last Admin: 09/20/18 03:51 Dose: 50 mg
--- NOTE | 2018-09-21 12:10 | CT ---
CT ANGIO CHEST WITH INTRAVENOUS CONTRAST WITH 3D RECONSTRUCTIONS: HISTORY: The patient is status post back surgery on 09/17/2018. Dyspnea. Elevated troponin. History of prev ious bypass. FINDINGS: Small bilateral pleural effusions are noted, right larger than left. There is atelectatic change wit hin the right lung base. Also, minimal atelectatic changes in the right lower lobe. There is also p late-like atelectasis along the right minor fissure. No significant mediastinal or hilar adenopathy. The thoracic aorta is normal in caliber. There is good pulmonary arterial opacification. There is no CT evidence for pulmonary embolus. Bilateral calcified breast implants are noted. The visualized liver parenchyma shows no focal findin gs. IMPRESSION: 1. Small bilateral pleural effusions, right larger than left, with bibasilar atelectatic lung change . 2. No CT evidence for pulmonary embolus. POS: ROJELIO
[2018-09-21] MEDS: Acetaminophen 325 MG TAB PO PRN (12:17)
--- NOTE | 2018-09-21 15:08 | RAD ---
Left forearm 1 view HISTORY: Contrast extravasation during CT exam. FINDINGS: A large amount of radiopaque material, consistent with iodinated contrast, is present throu ghout the subcutaneous tissues of the forearm, extending from the level of the elbow to the lateral margin of the hand. The contrast is predominantly within the deep subcutaneous tissues abutting the u nderlying muscular bundles. Hemostasis clips are also present throughout the forearm. IMPRESSION: Large amount of iodinated contrast throughout the deep subcutaneous tissues of the left f orearm. Spread rather diffusely.
--- NOTE | 2018-09-21 16:22 | CON ---
DATE OF CONSULTATION: 09/21/2018 REASON FOR CONSULTATION: [id number] myocardial infarction. HISTORY OF PRESENT ILLNESS: Ms. Ana Vivar is 77-year-old woman who had intractable back pain. The patient ultimately underwent surgical therapy done successfully on 09/18/2018 that was done successfully by Dr. Mcgraw. She had L3-L4 laminectomy, bilateral L4-L5 revision, hemilaminectomy, foraminotomy for decompression of nerve roots. The patient did well in the postoperative period. The patient was noted to feel cold and also some shortness of breath and underwent troponin evaluation, which was somewhat elevated as will be outlined below. She never had chest pain or pressure. PAST MEDICAL HISTORY: The patient did have a history of bypass surgery in 2016 at [facility] in [place]. She said x5. She said a few months later, she had to have 3 stents placed in her coronary arteries. The patient had been maintained on aspirin and Plavix, but lately taken off Plavix, but she maintained on aspirin until last Friday. She has not received any aspirin since then. Other past history; hypertension and hypercholesterolemia. HOME MEDICATIONS ON ADMISSION: 1. She was taking 81 mg aspirin until the day before surgery. 2. Zetia. 3. Plavix had been stopped previously. 4. Losartan. 5. Carvedilol. 6. Furosemide. ALLERGIES: TO NONE KNOWN. SOCIAL HISTORY: No alcohol or tobacco. REVIEW OF SYSTEMS: CONSTITUTIONAL: No significant weight gain or loss of vision. No changes. HEARING: No changes. PULMONARY: No cough or wheezing. GASTROINTESTINAL: No nausea, vomiting, or diarrhea. SKIN: No rashes. NEUROLOGIC: No unilateral weakness or numbness. PSYCHIATRIC: No unusual depression or anxiety. HEMATOLOGIC: No unusual bruising. GENITOURINARY: No burning urination. FAMILY HISTORY: Negative for heart disease at a young age. SOCIAL HISTORY: As outlined above. PHYSICAL EXAMINATION: GENERAL: This is a 77-year-old woman, resting comfortably. VITAL SIGNS: Blood pressure 113/57 and pulse 82 and regular. HEENT: Eyes, sclerae nonicteric. Mouth, mucous membranes are moist. NECK: Supple. No lymphadenopathy. LUNGS: Clear. No wheezing, rales, or rhonchi. CARDIAC: Normal S1, normal S2. I do not hear murmur, rub, or gallop. ABDOMEN: Soft, nontender. EXTREMITIES: Warm, dry. No clubbing, cyanosis, or edema. Peripheral pulses are diminished and difficult to feel pedal pulses. Femoral pulses are palpable and also somewhat diminished. PERTINENT LABORATORY DATA: Potassium is 3.4. Peak troponin 1.081 this morning, was 0.096 yesterday. EKG; sinus rhythm, just some nonspecific T-wave anterior changes in the EKG yesterday. The heart rate was 103 at that time. Echocardiogram; ejection fraction 50% to 55%. Mild concentric left ventricular hypertrophy. Moderate mitral regurgitation, moderate aortic insufficiency, [id number] tricuspid insufficiency with elevated pulmonary artery pressure at 50 mmHg systolic. CONCLUSION: 1. Recent back surgery. 2. Coronary artery disease with previous bypass surgery and stent implantations. 3. Kqs-LX-abprdesno infarction. PLAN: 1. Resume aspirin. 2. Continue beta blockers. 3. Resume Zetia. 4. Need to see why she is not taking any statins. We will continue to follow with you. We will try to medically stabilize. We will try to get some records from [facility] and try to treat conservatively if possible. Job ID: [id number]
[2018-09-21] MEDS ORDERED: Aspirin 81 mg Enteric Coated Tablet PO SCH ×2 (17:00→18:00)
[2018-09-21] MEDS: HYDROcodone/Acetaminophen 7.5/325 mg Tablet PO PRN (18:06)
[2018-09-21] MEDS: clonazePAM 1 MG TAB PO SCH (20:50)
--- NOTE | 2018-09-21 22:24 | EKG ---
Test Reason : PREOP Blood Pressure : / mmHG Vent. Rate : 063 BPM Atrial Rate : 063 BPM P-R Int : 160 ms QRS Dur : 092 ms QT Int : 448 ms P-R-T Axes : 020 057 044 degrees QTc Int : 458 ms Normal sinus rhythm Nonspecific ST and T wave abnormality Abnormal ECG No previous ECGs available Confirmed by Ashlee DE LA PAZ ([id number]) on 09/21/2018 10:23:52 PM Referred By: DAVID Confirmed By:Ashlee DE LA PAZ
--- NOTE | 2018-09-21 22:45 | EKG ---
Test Reason : Blood Pressure : / mmHG Vent. Rate : 103 BPM Atrial Rate : 103 BPM P-R Int : 148 ms QRS Dur : 090 ms QT Int : 360 ms P-R-T Axes : 006 063 093 degrees QTc Int : 471 ms Sinus tachycardia T wave abnormality, consider anterior ischemia Abnormal ECG When compared with ECG of 17-SEP-2018 09:07, (Unconfirmed) Vent. rate has increased BY 40 BPM Nonspecific T wave abnormality, worse in Inferior leads T wave inversion more evident in Anterior leads Confirmed by Ashlee DE LA PAZ ([id number]) on 09/21/2018 10:45:34 PM Referred By: Confirmed By:Ashlee DE LA PAZ
[2018-09-22] MEDS: HYDROcodone/Acetaminophen 7.5/325 mg Tablet PO PRN ×2 (00:42→08:53)
[2018-09-22 07:57] LABS: #Basophils 0.1 thou/uL (0.0-0.2); #Eosinphils 0.7 thou/uL (0.0-0.7); #Lymphocytes 1.7 thou/uL (1.20-3.40); #Neutrophils 6.3 thou/uL (1.40-6.50); %Basophils 1.2 % (0.0-1.0); %Eosinophils 6.8 % (0.0-10.0); %Lymphocytes 17.1 % (21.0-51.0); %Monocytes 10.5 % (0.0-10.0); %Neutrophils 64.5 % (42.0-75.0); Mean Corpuscular HGB CONC 32.6 g/dL (32.0-36.0); Mean Corpuscular Hemoglobin 33.9 pg (27.0-31.0); Mean Platelet Volume 6.7 fL (7.4-10.4); Platelet Count 355 thou/uL (130-400); RBC Distribution Width 12.7 % (11.5-14.5); Red Blood Cell (RBC) Count 2.66 mill/uL (4.20-5.40); White Blood Cell (WBC) Count 9.8 thou/uL (4.8-10.8)
--- NOTE | 2018-09-22 07:57 | PRG ---
DATE OF SERVICE: 09/22/2018 SUBJECTIVE: Ms. Vivar is 5 days out from multilevel lumbar decompression and fusion. She had a non-ST elevation myocardial infarction. I have spoken to Dr. Merlos. It appears to be minor and her hemodynamics have been stable. Hemodynamics have been stable. This morning, she is sedated with narcotics. I have asked the nursing team to reduce this. She moves her legs without deficit and states she has no complaints in regard to leg pain. Hopefully, we can get her to rehab as early as tomorrow. We have restarted aspirin. We will plan to restart Plavix in an another 5 days. Job ID: [id number]
[2018-09-22] MEDS ORDERED: Potassium Chloride 20 MEQ TAB PO SCH (08:15)
[2018-09-22] MEDS ORDERED: Furosemide 20 MG/2 ML VIAL SLOW IVP SCH (08:15)
[2018-09-22 08:20] LABS: ALT (SGPT) 9 U/L (8-55); AST (SGOT) 29 U/L (5-34); Albumin 2.8 g/dL (3.4-4.8); Alkaline Phosphatase 115 U/L (40-150); Anion Gap 12 mmol/L (10-20); BUN (Urea Nitrogen) 10 mg/dL (9.8-20.1); Bilirubin, Total 0.4 mg/dL (0.2-1.2); Calc. Creatinine Clearance 75 mL/min (70-130); Calcium 8.1 mg/dL (7.8-10.44); Carbon Dioxide 24 mmol/L (23-31); Cardiac Risk 4.9 (Less than 4.5); Chloride 106 mmol/L (98-107); Cholesterol 112 mg/dl (< 200 Desired); Estimated GFR-MDRD 86; Globulin 2.4 g/dL (2.4-3.5); Glucose 85 mg/dL (83-110); HDL Cholesterol 23 mg/dL (>60 Neg Risk); LDL Cholesterol, Calculated 63 mg/dL; Potassium 3.8 mmol/L (3.5-5.1); Protein, Total 5.2 g/dL (6.0-8.3); Sodium 138 mmol/L (136-145); Triglycerides 129 mg/dL (Less than 150)
[2018-09-22] MEDS: Aspirin 81 mg Enteric Coated Tablet PO SCH (08:58)
[2018-09-22] MEDS: Floranex Packet PO SCH (08:59)
[2018-09-22] MEDS: Losartan 25 MG TAB PO SCH (08:59)
[2018-09-22] MEDS: Carvedilol 3.125 MG TAB PO SCH ×2 (08:59→20:57)
[2018-09-22] MEDS: Citalopram 20 MG TAB PO SCH (09:00)
[2018-09-22] MEDS: Ezetimibe 10 MG TAB PO SCH (09:00)
[2018-09-22] MEDS: Furosemide 20 MG TAB PO SCH (09:00)
[2018-09-22] MEDS: Loratadine 10 MG TAB PO SCH (09:00)
[2018-09-22] MEDS: Folic Acid 1 MG TAB PO SCH (09:00)
[2018-09-22] MEDS: Ascorbic Acid 500 mg Chewable Tablet PO SCH (09:00)
--- NOTE | 2018-09-22 09:04 | RAD ---
XR Chest 1 View Portable HISTORY: Cough, bilateral crackles COMPARISON: 11/29/2015 FINDINGS: The heart size is prominent. Changes of median sternotomy, intraspinal leads and bilateral calcified breast implants are again seen. No lobar consolidation, pneumothoraces, lesa pulmonary edema or large effusions are identified. A small right pleural effusion cannot be excluded. There are plates of linear atelectasis in the right midlung..
--- NOTE | 2018-09-22 09:50 | PRG ---
DATE OF SERVICE: 09/22/2018 SUBJECTIVE: Ms. Vivar is feeling better today. She has not really been up out of bed much, however. She is using oxygen. OBJECTIVE: VITAL SIGNS: Oxygen saturation is 93% on 2 L. Blood pressure 123/59, pulse 84 and regular. LUNGS: There are few expiratory wheezes. CARDIAC: Normal S1, normal S2. ABDOMEN: Soft, nontender. EXTREMITIES: There is no edema. LABORATORY STUDIES: The peak troponin yesterday was 1.081. ASSESSMENT: 1. Status post extensive lumbar spinal surgery. 2. Non-ST elevation infarction. 3. Probably some element of diastolic congestive heart failure. We will go ahead and order BNP in the morning. PLAN: 1. We will give Lasix 20 mg, potassium 40 mEq. 2. She is back on aspirin. 3. Echocardiogram showed normal left ventricular function and wall motion. Job ID: [id number]
--- NOTE | 2018-09-22 10:13 | PDOC.PN ---
- Subjective Encounter Start Date: 09/22/18 Encounter Start Time: 07:30 pt still has pain and requires pain meds, feels weak, has cough - Objective Resuscitation Status - Order Detail: 09/19/18 10:21 Resuscitation Status Routine Resuscitation Status: FULL: Full Resuscitation MAR Reviewed: Yes Vital Signs & Weight: Vital Signs (12 hours) Temp Pulse Resp BP Pulse Ox 09/22/18 05:02 98.0 F 84 20 123/59 L 93 L Weight Weight 146 lb I&O: 09/21/18 09/22/18 09/23/18 06:59 06:59 06:59 Intake Total 1905 840 Output Total 1075 750 Balance 830 90 Result Diagrams: 09/22/18 07:41 09/22/18 07:41 Radiology Reviewed by me: Yes EKG Reviewed by me: Yes Phys Exam - Physical Examination Constitutional: NAD HEENT: PERRLA, moist MMs, sclera anicteric Neck: no JVD, supple coarse sound+ Cardiovascular: RRR, no significant murmur, no rub Gastrointestinal: soft, non-tender, no distention, positive bowel sounds Musculoskeletal: no edema, pulses present Neurological: non-focal, normal sensation, moves all 4 limbs Lymphatic: no nodes Psychiatric: normal affect, A&O x 3 Skin: no rash, normal turgor Dx/Plan (1) Type [address] elevation Code(s): I21.A1 - MYOCARDIAL INFARCTION TYPE 2 Status: Acute (2) S/P lumbar laminectomy Code(s): Z98.890 - OTHER SPECIFIED POSTPROCEDURAL STATES Status: Acute (3) Anxiety and depression Code(s): F41.9 - ANXIETY DISORDER, UNSPECIFIED; F32.9 - MAJOR DEPRESSIVE DISORDER, SINGLE EPISODE, UNSPECIFIED Status: Chronic (4) CAD (coronary artery disease) Code(s): I25.10 - ATHSCL HEART DISEASE OF [place] CORONARY ARTERY W/O ANG PCTRS Status: Chronic (5) COPD (chronic obstructive pulmonary disease) Status: Chronic (6) GERD (gastroesophageal reflux disease) Code(s): K21.9 - GASTRO-ESOPHAGEAL REFLUX DISEASE WITHOUT ESOPHAGITIS Status: Chronic (7) Hypertension Code(s): I10 - ESSENTIAL (PRIMARY) HYPERTENSION Status: Chronic (8) Macrocytic anemia Code(s): D53.9 - NUTRITIONAL ANEMIA, UNSPECIFIED Status: Chronic (9) Rheumatoid arthritis Code(s): M06.9 - RHEUMATOID ARTHRITIS, UNSPECIFIED Status: Chronic - Plan cont current plan of care, plan discussed w/ family, PT/OT, social worker psychiatric * continue lasix * repeat labs tomorrow * medication reviewed as below * symptomatic treatment * discussed with * continue PT * pain control * expecting discharge tomorrow. Review of Systems - Review of Systems Constitutional: weakness. negative: fever, chills, sweats, malaise, other Respiratory: Cough. negative: Dry, Shortness of Breath, Hemoptysis, SOB with Excertion, Pleuritic Pain, Sputum, Wheezing Cardiovascular: negative: chest pain, palpitations, orthopnea, paroxysmal nocturnal dyspnea, edema, light headedness, other Gastrointestinal: negative: Nausea, Vomiting, Abdominal Pain, Diarrhea, Constipation, Melena, Hematochezia, Other Genitourinary: negative: Dysuria, Frequency, Incontinence, Hematuria, Retention , Other Musculoskeletal: Back Pain. negative: Neck Pain, Shoulder Pain, Arm Pain, Hand Pain, Leg Pain, Foot Pain, Other Skin: negative: Rash, Lesions, Alvarez, Bruising, Other - Medications/Allergies Allergies/Adverse Reactions: Allergies Allergy/AdvReac Type Severity Reaction Status Date / Time No Known Allergies Allergy Verified 09/17/18 20:10 Medications: Current Medications Acetaminophen (Tylenol) 650 mg PO Q4H PRN PRN Reason: Headache/Fever or Pain Last Admin: 09/21/18 12:17 Dose: 650 mg Acetaminophen/Codeine Phosphate (Tylenol #3) 1 tab PO Q3H PRN PRN Reason: Mild Pain (1-3) Last Admin: 09/21/18 07:35 Dose: 1 tab Hydrocodone Bitart/Acetaminophen (Painter 7.5/325) 2 tab PO Q4H PRN PRN Reason: Moderate Pain (4-6) Last Admin: 09/22/18 08:53 Dose: 2 tab Acidophilus (Floranex) 1 gm PO DAILY [facility]LEX[facility] Last Admin: 09/22/18 08:59 Dose: 1 gm Al Hydroxide/Mg Hydroxide (Maalox) 30 ml PO Q4H PRN PRN Reason: Indigestion Albuterol/Ipratropium (Duoneb) 3 ml NEB [id number] PRN PRN Reason: SOB &/or Wheezing Last Admin: 09/20/18 08:46 Dose: 3 ml Ascorbic Acid (Vitamin C) 1,000 mg PO DAILY [facility] Last Admin: 09/22/18 09:00 Dose: 1,000 mg Aspirin (Ecotrin) 81 mg PO DAILY [facility] Last Admin: 09/22/18 08:58 Dose: 81 mg Bisacodyl (Dulcolax) 10 mg DC Q12H PRN PRN Reason: Constipation Carvedilol (Coreg) 6.25 mg PO BID [facility] Last Admin: 09/22/18 08:59 Dose: 6.25 mg Citalopram Hydrobromide (Celexa) 20 mg PO DAILY [facility] Last Admin: 09/22/18 09:00 Dose: 20 mg Clonazepam (Klonopin) 3 mg PO HS [facility] Last Admin: 09/21/18 20:50 Dose: 3 mg Ezetimibe (Zetia) 10 mg PO DAILY [facility] Last Admin: 09/22/18 09:00 Dose: 10 mg Folic Acid (Folvite) 1 mg PO DAILY [facility] Last Admin: 09/22/18 09:00 Dose: 1 mg Furosemide (Lasix) 20 mg PO DAILY [facility] Last Admin: 09/22/18 09:00 Dose: 20 mg Gabapentin (Neurontin) 100 mg PO HS PRN PRN Reason: Pain Ketorolac Tromethamine (Toradol) 15 mg IVP Q6H PRN PRN Reason: Pain Stop: 09/24/18 11:42 Last Admin: 09/21/18 02:11 Dose: 15 mg Loratadine (Claritin) 10 mg PO DAILY [facility] Last Admin: 09/22/18 09:00 Dose: 10 mg Losartan Potassium (Cozaar) 50 mg PO DAILY [facility] Last Admin: 09/22/18 08:59 Dose: 50 mg Magnesium Hydroxide (Milk Of Magnesium) 30 ml PO Q12H PRN PRN Reason: Constipation Morphine Sulfate (Morphine) 2 mg SLOW IVP Q1H PRN PRN Reason: Severe Pain (7-10) Pantoprazole Sodium (Protonix) 40 mg PO DAILY [facility] Last Admin: 09/22/18 08:58 Dose: 40 mg Promethazine HCl (Phenergan) 12.5 mg IVPB Q4H PRN PRN Reason: Nausea/Vomiting Sodium Biphosphate/Sodium Phosphate (Fleet Enema) 133 ml DC 1530 PRN PRN Reason: Constipation Sodium Chloride (Flush - Normal Saline) 10 ml IVF PRN PRN PRN Reason: Saline Flush Tizanidine HCl (Zanaflex) 4 mg PO TID PRN PRN Reason: Muscle Spasm Last Admin: 09/19/18 06:42 Dose: 4 mg Tramadol HCl (Ultram) 50 mg PO Q6H PRN PRN Reason: Mild Pain (1-3) Last Admin: 09/20/18 03:51 Dose: 50 mg
[2018-09-22] MEDS: Acetaminophen/Codeine 30-300mg Tablet PO PRN (17:37)
[2018-09-22] MEDS: clonazePAM 1 MG TAB PO SCH ×2 (21:02→21:04)
[2018-09-23 04:43] VITALS: TEMP 98.7
[2018-09-23 07:30] LABS: Anion Gap 14 mmol/L (10-20); BUN (Urea Nitrogen) 10 mg/dL (9.8-20.1); Calc. Creatinine Clearance 76 mL/min (70-130); Calcium 8.3 mg/dL (7.8-10.44); Carbon Dioxide 24 mmol/L (23-31); Chloride 103 mmol/L (98-107); Estimated GFR-MDRD 87; Glucose 76 mg/dL (83-110); Potassium 3.6 mmol/L (3.5-5.1); Sodium 137 mmol/L (136-145)
[2018-09-23] MEDS: Aspirin 81 mg Enteric Coated Tablet PO SCH (09:20)
[2018-09-23] MEDS: Ascorbic Acid 500 mg Chewable Tablet PO SCH (09:21)
[2018-09-23] MEDS: Carvedilol 3.125 MG TAB PO SCH (09:21)
[2018-09-23] MEDS: Losartan 25 MG TAB PO SCH (09:21)
[2018-09-23] MEDS: Ezetimibe 10 MG TAB PO SCH (09:21)
[2018-09-23] MEDS: Citalopram 20 MG TAB PO SCH (09:21)
[2018-09-23] MEDS: Furosemide 20 MG TAB PO SCH (09:21)
[2018-09-23] MEDS: Floranex Packet PO SCH (09:21)
[2018-09-23] MEDS: Ketorolac Tromethamine 30 MG/ML VIAL IVP PRN (09:22)
[2018-09-23] MEDS: Folic Acid 1 MG TAB PO SCH (09:22)
[2018-09-23] MEDS: Loratadine 10 MG TAB PO SCH (09:22)
--- NOTE | 2018-09-23 10:31 | PRG ---
DATE OF SERVICE: 09/23/2018 SUBJECTIVE: Ms. Vivar still is not getting up and around too much. She is not short of breath. OBJECTIVE: VITAL SIGNS: Blood pressure 125/61, pulse 70 and it is regular. LUNGS: Clear. CARDIAC: Normal S1, normal S2. ABDOMEN: Soft and nontender. ASSESSMENT: 1. Postoperative status after extensive lumbar surgery. 2. Small non-ST elevation myocardial infarction. 3. Mild anemia. Hemoglobin is 9. 4. Diastolic heart failure with a BNP of 951. PLAN: 1. We will add spironolactone 25 mg a day. 2. She is on furosemide 20 mg a day. 3. Okay to me to go to rehab or back to the surgical floor. 4. Recommend a basic metabolic profile in 1 week. Job ID: [id number]
--- NOTE | 2018-09-23 11:26 | DIS ---
DATE OF ADMISSION: 09/17/2018 DATE OF DISCHARGE: 09/23/2018 PRIMARY CARE PHYSICIAN: Dr. Michael Ivan DISCHARGE DISPOSITION: Rehab. PRIMARY DISCHARGE DIAGNOSIS: 1. Status post lumbar laminectomy. 2. Type [address]-elevation; moderate aortic, mitral, and tricuspid regurgitation; pulmonary hypertension. SECONDARY DISCHARGE DIAGNOSES: Macrocytic anemia, hypertension, gastroesophageal reflux disease, chronic obstructive pulmonary disease, coronary artery disease, anxiety and depression, chronic low back pain, obesity. PRIMARY PROCEDURE/OPERATION: Lumbar laminectomy by Dr. Mcgraw. RADIOLOGICAL INVESTIGATION: Ultrasound negative for DVT. CT angio negative for PE. Echocardiography showed normal EF, showed moderate mitral, tricuspid and aortic regurgitation. Chest x-ray, stable. SIGNIFICANT LABORATORY DATA: Hemoglobin 9.0, MCV 104. Creatinine 0.66. BNP 951. Electrolytes normal. Troponin 1.081. DISCHARGE MEDICATIONS: 1. Vitamin C 1000 mg p.o. daily. 2. Tylenol No.3 one or two tablets q.6 hourly p.r.n. 3. Coreg 6.25 mg p.o. b.i.d. 4. Celexa 20 mg daily. 5. Klonopin 3 mg p.o. at bedtime. 6. Zetia 10 mg daily. 7. Emi 180 mg daily. 8. Fish oil one capsule b.i.d. 9. Folic acid 1 mg daily. 10. Gabapentin 100 mg p.o. at bedtime p.r.n. 11. Probiotic one capsule daily. 12. Losartan 50 mg daily. 13. Multivitamin one tablet daily. 14. Protonix 40 mg p.o. daily. 15. Sulfasalazine 500 mg b.i.d. 16. Aspirin 81 mg daily. 17. The patient will continue Plavix 75 mg p.o. daily when neurosurgeon okay. 18. Lasix 20 mg daily. 19. Coenzyme Q10 100 mg daily. CONTRAINDICATION: None. CODE STATUS: Full code. INPATIENT ESE TEACHER: Dr. Mcgraw was primary while in hospital. Sound Team was consulted for medical comanagement. Cardiology group was consulted for elevated troponin. TEST RESULT PENDING ON DISCHARGE: None. ALLERGIES: NO KNOWN DRUG ALLERGIES. DISCHARGE PLAN: Posthospital, the patient will follow up with Dr. Merlos, Dr. Mcgraw as instructed. HOSPITAL COURSE: A 77-year-old female with above-mentioned medical problem, who has chronic low back pain, who was admitted by Dr. Mcgraw on September 17, 2018. The patient underwent lumbar laminectomy on September 18, 2018 and subsequently, the patient was admitted to the hospital. Sound Team was consulted for medical comanagement. The patient's medical problem remained stable, but she was having difficulty with pain. We repeated routine blood tests, one time, her blood pressure dropped. At that time, we checked cardiac enzyme and cardiac enzymes were elevated. The patient was not having any chest pain or angina. This was attributed to be due to non-ST elevation [place] type 2. We transferred her to telemetry floor. Cardiology was consulted. Echocardiography was obtained, which showed moderate mitral, tricuspid, and aortic regurgitation. The patient was treated with Lasix and symptomatic treatment. The patient was cleared for discharge to rehab by Cardiology as well as primary team. On discharge, Dr. Merlos added Aldactone that was added on her regimen. Overall, the patient is doing very well. The patient is medically stable for discharge to go to rehab for more PT/OT. The patient is seen and examined at bedside today. REVIEW OF SYSTEMS: All review of systems reviewed with her and negative other than her chronic low back pain. PHYSICAL EXAMINATION: VITAL SIGNS: Today, temperature 98.7, pulse 75, respiratory rate 16, saturation 94% on 2 L, blood pressure 125/61, weight 169 pounds. GENERAL: The patient is currently alert, oriented, no obvious acute distress. HEENT: Head; normocephalic, atraumatic. Eyes; pupils are round, reactive to light. Extraocular muscle intact. ENT; oropharynx within normal limits. LUNGS: Clear to auscultation without any rhonchi or rales. CARDIAC: S1, S2 regular. No murmur. No gallop. No rub. ABDOMEN: Soft, benign. EXTREMITIES: No edema. NEUROLOGIC: Nonfocal examination. The patient is medically stable for discharge. Discharge paperwork done. Discharge medication reconciliation done and we will sign off. Job ID: [id number]
--- NOTE | 2018-09-23 11:48 | PDOC.PN ---
- Subjective Encounter Start Date: 09/23/18 Encounter Start Time: 09:10 Patient seen and examined. No new complaints. No overnight events - Objective Resuscitation Status - Order Detail: 09/19/18 10:21 Resuscitation Status Routine Resuscitation Status: FULL: Full Resuscitation MAR Reviewed: Yes Vital Signs & Weight: Vital Signs (12 hours) Temp Pulse Resp BP Pulse Ox 09/23/18 07:41 94 L 09/23/18 04:00 98.7 F 75 16 125/61 94 L 09/23/18 00:00 98.3 F 78 20 143/62 H 97 Weight Weight 169 lb 5.04 oz I&O: 09/22/18 09/23/18 09/24/18 06:59 06:59 06:59 Intake Total 840 580 Output Total 750 800 Balance 90 -220 Result Diagrams: 09/22/18 07:41 09/23/18 06:52 EKG Reviewed by me: Yes Phys Exam - Physical Examination Constitutional: NAD HEENT: PERRLA, moist MMs, sclera anicteric Neck: no JVD, supple Respiratory: no wheezing, no rales, no rhonchi Cardiovascular: RRR, no significant murmur, no rub Gastrointestinal: soft, non-tender, no distention, positive bowel sounds Musculoskeletal: no edema, pulses present Neurological: moves all 4 limbs Lymphatic: no nodes Psychiatric: normal affect, A&O x 3 Skin: no rash, normal turgor Dx/Plan (1) Type [address] elevation Code(s): I21.A1 - MYOCARDIAL INFARCTION TYPE 2 Status: Acute (2) S/P lumbar laminectomy Code(s): Z98.890 - OTHER SPECIFIED POSTPROCEDURAL STATES Status: Acute (3) Anxiety and depression Code(s): F41.9 - ANXIETY DISORDER, UNSPECIFIED; F32.9 - MAJOR DEPRESSIVE DISORDER, SINGLE EPISODE, UNSPECIFIED Status: Chronic (4) CAD (coronary artery disease) Code(s): I25.10 - ATHSCL HEART DISEASE OF [place] CORONARY ARTERY W/O ANG PCTRS Status: Chronic (5) COPD (chronic obstructive pulmonary disease) Status: Chronic (6) GERD (gastroesophageal reflux disease) Code(s): K21.9 - GASTRO-ESOPHAGEAL REFLUX DISEASE WITHOUT ESOPHAGITIS Status: Chronic (7) Hypertension Code(s): I10 - ESSENTIAL (PRIMARY) HYPERTENSION Status: Chronic (8) Macrocytic anemia Code(s): D53.9 - NUTRITIONAL ANEMIA, UNSPECIFIED Status: Chronic (9) Rheumatoid arthritis Code(s): M06.9 - RHEUMATOID ARTHRITIS, UNSPECIFIED Status: Chronic - Plan cont current plan of care, social worker aide * medication reviewed as below * symptomatic treatment * see discharge kaitlynn. Review of Systems - Review of Systems ENT: negative: Ear Pain, Ear Discharge, Nose Pain, Nose Discharge, Nose Congestion, Mouth Pain, Mouth Swelling, Throat Pain, Throat Swelling, Other Respiratory: negative: Cough, Dry, Shortness of Breath, Hemoptysis, SOB with Excertion, Pleuritic Pain, Sputum, Wheezing Cardiovascular: negative: chest pain, palpitations, orthopnea, paroxysmal nocturnal dyspnea, edema, light headedness, other Gastrointestinal: negative: Nausea, Vomiting, Abdominal Pain, Diarrhea, Constipation, Melena, Hematochezia, Other Genitourinary: negative: Dysuria, Frequency, Incontinence, Hematuria, Retention , Other Musculoskeletal: Back Pain. negative: Neck Pain, Shoulder Pain, Arm Pain, Hand Pain, Leg Pain, Foot Pain, Other - Medications/Allergies Allergies/Adverse Reactions: Allergies Allergy/AdvReac Type Severity Reaction Status Date / Time No Known Allergies Allergy Verified 09/17/18 20:10 Medications: Current Medications Acetaminophen (Tylenol) 650 mg PO Q4H PRN PRN Reason: Headache/Fever or Pain Last Admin: 09/21/18 12:17 Dose: 650 mg Acetaminophen/Codeine Phosphate (Tylenol #3) 1 tab PO Q3H PRN PRN Reason: Mild Pain (1-3) Last Admin: 09/22/18 17:37 Dose: 1 tab Hydrocodone Bitart/Acetaminophen ([place] 7.5/325) 2 tab PO Q4H PRN PRN Reason: Moderate Pain (4-6) Last Admin: 09/22/18 08:53 Dose: 2 tab Acidophilus (Floranex) 1 gm PO DAILY [facility] Last Admin: 09/23/18 09:21 Dose: 1 gm Al Hydroxide/Mg Hydroxide (Maalox) 30 ml PO Q4H PRN PRN Reason: Indigestion Albuterol/Ipratropium (Duoneb) 3 ml NEB [id number] PRN PRN Reason: SOB &/or Wheezing Last Admin: 09/20/18 08:46 Dose: 3 ml Ascorbic Acid (Vitamin C) 1,000 mg PO DAILY [facility] Last Admin: 09/23/18 09:21 Dose: 1,000 mg Aspirin (Ecotrin) 81 mg PO DAILY [facility] Last Admin: 09/23/18 09:20 Dose: 81 mg Bisacodyl (Dulcolax) 10 mg RI Q12H PRN PRN Reason: Constipation Carvedilol (Coreg) 6.25 mg PO BID [facility] Last Admin: 09/23/18 09:21 Dose: 6.25 mg Citalopram Hydrobromide (Celexa) 20 mg PO DAILY [facility] Last Admin: 09/23/18 09:21 Dose: 20 mg Clonazepam (Klonopin) 3 mg PO HS [facility] Last Admin: 09/22/18 21:04 Dose: Not Given Ezetimibe (Zetia) 10 mg PO DAILY [facility] Last Admin: 09/23/18 09:21 Dose: 10 mg Folic Acid (Folvite) 1 mg PO DAILY [facility] Last Admin: 09/23/18 09:22 Dose: 1 mg Furosemide (Lasix) 20 mg PO DAILY [facility] Last Admin: 09/23/18 09:21 Dose: 20 mg Gabapentin (Neurontin) 100 mg PO HS PRN PRN Reason: Pain Ketorolac Tromethamine (Toradol) 15 mg IVP Q6H PRN PRN Reason: Pain Stop: 09/24/18 11:42 Last Admin: 09/23/18 09:22 Dose: 15 mg Loratadine (Claritin) 10 mg PO DAILY [facility] Last Admin: 09/23/18 09:22 Dose: 10 mg Losartan Potassium (Cozaar) 50 mg PO DAILY [facility] Last Admin: 09/23/18 09:21 Dose: 50 mg Magnesium Hydroxide (Milk Of Magnesium) 30 ml PO Q12H PRN PRN Reason: Constipation Morphine Sulfate (Morphine) 2 mg SLOW IVP Q1H PRN PRN Reason: Severe Pain (7-10) Pantoprazole Sodium (Protonix) 40 mg PO DAILY [facility] Last Admin: 09/23/18 09:21 Dose: 40 mg Promethazine HCl (Phenergan) 12.5 mg IVPB Q4H PRN PRN Reason: Nausea/Vomiting Sodium Biphosphate/Sodium Phosphate (Fleet Enema) 133 ml RI 1530 PRN PRN Reason: Constipation Sodium Chloride (Flush - Normal Saline) 10 ml IVF PRN PRN PRN Reason: Saline Flush Spironolactone (Aldactone) 25 mg PO QAM-WM [facility] Tizanidine HCl (Zanaflex) 4 mg PO TID PRN PRN Reason: Muscle Spasm Last Admin: 09/19/18 06:42 Dose: 4 mg Tramadol HCl (Ultram) 50 mg PO Q6H PRN PRN Reason: Mild Pain (1-3) Last Admin: 09/20/18 03:51 Dose: 50 mg
--- NOTE | 2018-09-23 12:26 | PRG ---
DATE OF SERVICE: 09/23/2018 This is Sonny Ackerman PA-C dictating a report for Curtis Mcgraw MD. This is postoperative recheck. Ms. Vivar is now postoperative day #6 having undergone multilevel lumbar laminectomies with posterior lumbar fusion. The patient is currently getting a shower. I was able to talk to the patient and she looks much more awake and alert and though slightly uncomfortable in regard to back pain. She denies any leg pain. She is back on 81 mg aspirin and she did sustain a small non-STEMI this weekend. Nonetheless, she is stable for discharge to inpatient rehab, and I have discussed this with Case Management. Hopefully, we will get her there today, but again she is ready for discharge from our perspective. She will continue with 81 mg aspirin. Please call with any changes in the patient's neurologic status. Again, we hope for dismissal later today. Job ID: [id number]
[2018-09-23 13:26] VITALS: BP 134/60
[2018-09-24] MEDS ORDERED: Spironolactone 25 MG TAB PO SCH (08:00)
--- NOTE | 2018-09-24 13:39 | PQF ---
HUANG SMALL SALIM NOORJIBHAI MD [id number] [facility] [id number] CLINICAL DOCUMENTATION CLARIFICATION FORM: POST DISCHARGE Addendum to original discharge summary date: ____ Late entry note date: __ DATE: 09/24/18 ATTN: Dr. Dixon, Please exercise your independent, professional judgment in responding to the clarification form. Clinical indicators are provided on the bottom of this form for your review Please check appropriate box(s): DIASTOLIC HEART FAILURE B. ACUITY [ x ] Acute [ ] Acute on Chronic [ ] Chronic [ ] Other diagnosis [ ] Unable to determine In addition, please specify: Present on Admission (POA): [ ] Yes [x ] No [ ] Unable to determine For continuity of documentation, please document condition throughout progress notes and discharge summary. Thank You. CLINICAL INDICATORS - SIGNS / SYMPTOMS / LABS Ejection Fraction = 50-55 %--09/21 Echocardiogram Diastolic heart failure---09/23 Progress note Elevated BNP--951---09/23 Labs SOB---09/21 consult RISKS: Coronary artery disease with previous bypass surgery and stent implantations-- consult Hypertension--09/18 Progress note Type [address]-elevation---Discharge Summary Pulmonary hypertension--Discharge Summary TREATMENTS: Lasix 20 mg--09/22 Progress note Furosemide 20 mg a day--09/23 Progress note Oxygen--09/22 Progress note Cardiology consult--09/21 Thank you, Grace Estrada, [facility] 09/24/18@1:30PM (This form is maintained as a part of the permanent medical record) 2014 [employer]. All Rights Reserved [email or web address] [phone] [facility]
== END 2018-09-23 18:00 | DRG 459 ==
LOC: SURG A 09-17 07:54 → EDSTATUS 09-17 12:00 → SURG A 09-17 18:23 → 2NO 09-21 11:57
PROVIDERS: ADMIT Surgery; ATTEND Surgery
PROC: 0SG1071 Fusion of 2 or more Lumbar Vertebral Joints with Autologous Tissue Substitute, Posterior Approach, Posterior Column, Open Approach (ICD-10-PCS; principal; 2018-09-17)
PROC: 01NB0ZZ Release Lumbar Nerve, Open Approach (ICD-10-PCS; 2018-09-17)
DX: M48.061 Spinal stenosis, lumbar region without neurogenic claudication (principal); I21.A1 Myocardial infarction type 2; I50.31 Acute diastolic (congestive) heart failure; M43.16 Spondylolisthesis, lumbar region; I34.0 Nonrheumatic mitral (valve) insufficiency; I07.1 Rheumatic tricuspid insufficiency; I27.20 Pulmonary hypertension, unspecified; D53.9 Nutritional anemia, unspecified; E78.00 Pure hypercholesterolemia, unspecified; I11.0 Hypertensive heart disease with heart failure; K21.9 Gastro-esophageal reflux disease without esophagitis; F41.9 Anxiety disorder, unspecified; F32.9 Major depressive disorder, single episode, unspecified; J44.9 Chronic obstructive pulmonary disease, unspecified; M06.9 Rheumatoid arthritis, unspecified; I25.10 Atherosclerotic heart disease of native coronary artery without angina pectoris; E66.9 Obesity, unspecified; Z68.32 Body mass index [BMI] 32.0-32.9, adult; Z79.899 Other long term (current) drug therapy; Z79.82 Long term (current) use of aspirin; Z95.1 Presence of aortocoronary bypass graft; Z95.5 Presence of coronary angioplasty implant and graft
CPT/HCPCS: 36415; 71045; 71275; 76000; 80048; 80053; 80061; 82553; 83880; 84443; 84484; 85025; 93005; 93010; 93306; 93970; 94640; C1713; C1768; J0131; J0690; J1100; J1885; J2001; J2405; J2704; J2765; J3010; J3370; J3490; J7620; P9045; Q9966

== ENCOUNTER 2018-10-06 16:15 | Observation (INO) | payer MEDICARE, OTHER ==
--- NOTE | 2018-10-06 16:48 | RAD ---
Exam: Chest one view: HISTORY: Altered mental status COMPARISON: 10/01/2018 FINDINGS: Postop midline sternotomy. No skull stimulator leads in place. Linear parenchymal changes in the righ t midlung zone and both bases appear stable from prior study. Biapical pleural thickening. No confluent lobar pneumonia or overt edema. IMPRESSION: Stable linear parenchymal changes bilaterally. No significant new confluent pneumonia or overt edema.
--- NOTE | 2018-10-06 17:08 | CT ---
CT brain noncontrast: HISTORY: 78-year-old female with altered mental status. FINDINGS: There is no evidence of acute intra-axial or extra-axial hemorrhage. There is no midline shift or any other mass effect. There is no extra-axial fluid collection. There is no evidence of obstructive hydrocephalus. Calvarium is intact. Air-fluid level results in greater than 50% opacification of righ t sphenoid air cell. Left sphenoid air cell and bilateral frontal sinuses are clear. There is total opacification of the visualized upper portions of the bilateral maxillary sinuses. There is calcifica tion within the opacified left maxillary sinus suggestive of colonization by fungus. IMPRESSION: 1. No acute intracranial findings. 2. Opacification of visualized portions of bilateral maxillary sinuses. Fluid in the right sphenoid a ir cell.
[2018-10-06 17:36] LABS: #Basophils 0.1 thou/uL (0.0-0.2); #Eosinphils 0.8 thou/uL (0.0-0.7); #Lymphocytes 1.7 thou/uL (1.20-3.40); #Monocytes 0.5 thou/uL (0.11-0.59); #Neutrophils 3.8 thou/uL (1.40-6.50); %Basophils 1.1 % (0.0-1.0); %Eosinophils 11.1 % (0.0-10.0); %Lymphocytes 25.2 % (21.0-51.0); %Monocytes 7.6 % (0.0-10.0); Mean Corpuscular HGB CONC 31.4 g/dL (32.0-36.0); Mean Corpuscular Hemoglobin 32.4 pg (27.0-31.0); Mean Platelet Volume 6.2 fL (7.4-10.4); Platelet Count 655 thou/uL (130-400); RBC Distribution Width 13.4 % (11.5-14.5); Red Blood Cell (RBC) Count 2.77 mill/uL (4.20-5.40); White Blood Cell (WBC) Count 6.8 thou/uL (4.8-10.8)
[2018-10-06 18:09] LABS: ALT (SGPT) 11 U/L (8-55); AST (SGOT) 22 U/L (5-34); Acetaminophen Less than 6.0 mcg/mL (10.0-30.0); Albumin 3.4 g/dL (3.4-4.8); Alcohol Less than 10 mg/dL (Less than 10); Alkaline Phosphatase 190 U/L (40-150); Anion Gap 13 mmol/L (10-20); BUN (Urea Nitrogen) 25 mg/dL (9.8-20.1); Bilirubin, Total 0.3 mg/dL (0.2-1.2); Calc. Creatinine Clearance 0 mL/min (70-130); Calcium 8.5 mg/dL (7.8-10.44); Carbon Dioxide 30 mmol/L (23-31); Chloride 100 mmol/L (98-107); Estimated GFR-MDRD 43; Globulin 2.9 g/dL (2.4-3.5); Glucose 103 mg/dL (83-110); Potassium 5.2 mmol/L (3.5-5.1); Protein, Total 6.3 g/dL (6.0-8.3); Salicylate Less than 8.0 mg/dL (15.0-30.0); Sodium 138 mmol/L (136-145)
[2018-10-06 18:49] LABS: Bilirubin Negative (Negative); Blood, Urine Negative (Negative); Clarity CLEAR (Clear); Glucose, Urine (Dipstick) Negative (Negative); Leukocyte Large (Negative); Nitrite Negative (Negative); Protein, Urine (Dipstick) Negative (Neg-Trace); Specific Gravity, Urine 1.023 (1.002-1.036); pH, Urine 7.5 (5.0-9.0)
[2018-10-06 18:52] LABS: Bacteria/HPF None Seen HPF (None Seen); Hyaline Casts/LPF 4-6 HYALINE CAST LPF (0-3 Hyaline); Pathc Cast-AUWi Flag 0.81 (0-2.49); RBC/HPF 0-3 HPF (0-3)
[2018-10-06] MEDS ORDERED: Sodium Chloride 0.9% 1,000 ML IV SCH (21:30)
[2018-10-06] MEDS ORDERED: Ondansetron ODT 4 MG TAB PO PRN (21:54)
[2018-10-06] MEDS ORDERED: Acetaminophen 325 MG TAB PO PRN (21:54)
[2018-10-06] MEDS ORDERED: Ondansetron PF 4 MG/2 ML Vial IVP PRN (21:54)
[2018-10-06] MEDS ORDERED: traMADol HCl 50 MG TAB PO SCH (22:30)
[2018-10-06] MEDS ORDERED: cloNIDine 0.1 MG TAB PO PRN (22:53)
[2018-10-06] MEDS ORDERED: Diabetic Tussin 200 MG/10 ML UDCUP PO PRN (22:53)
[2018-10-06] MEDS: Sodium Chloride 0.9% 1,000 ML IV SCH (22:54)
[2018-10-07] MEDS ORDERED: clonazePAM 1 MG TAB PO SCH ×2 (01:45→21:00)
--- NOTE | 2018-10-07 02:56 | HP ---
PRIMARY CARE DOCTOR: Dr. Michael Ivan. CODE STATUS: Full code. TIME OF EVALUATION: 8:05 p.m. CHIEF COMPLAINT: Change in mental status. HISTORY OF PRESENT ILLNESS: This is 78-year-old female patient, with past medical history of arthritis, CAD, chronic back pain, COPD, GERD, hypertension, TIA, came to the hospital after having change in mental status that has been fluctuating and also was reported that the patient has blood pressure in the lower side with no clear triggers, no alleviating factors. The patient had a laminectomy done recently and she did have some small openings in the surgical wound that are not healing properly. Symptoms were severe. REVIEW OF SYSTEMS: CONSTITUTIONAL: No fever, chills, or generalized weakness. RESPIRATORY: No cough, sputum production, or shortness of breath. CARDIOVASCULAR: No chest pain or palpitation. GASTROINTESTINAL: No nausea, no vomiting, diarrhea, or abdominal pain. SOCIAL SCIENCE RESEARCH ASSISTANT: The patient has change in mental status. No dizziness, headache, or feeling lightheaded. GENITOURINARY: No burning on urination. EXTREMITIES: No leg swelling. All other systems were reviewed and negative except for the findings mentioned above. PAST MEDICAL HISTORY: Positive for arthritis, CAD, chronic back pain, COPD, GERD, hypertension, and TIA. PAST SURGICAL HISTORY: CABG, bilateral shoulder surgery back fusion in 09/17/2018. PSYCHIATRIC HISTORY: Depression. KNOWN ALLERGIES: No known drug allergies. REPORTED MEDICATIONS: 1. Ascorbic acid. 2. Aspirin. 3. Carvedilol. 4. Citalopram. 5. Clonazepam. 6. Clopidogrel. 7. Zetia. 8. Furosemide. 9. Losartan. 10. Pantoprazole. 11. Spironolactone. 12. Sulfasalazine. 13. Ubiquinol. 14. Acetylcholine. 15. Clonidine. 16. Gabapentin. 17. Loperamide. 18. Magnesium hydroxide. 19. Simethicone. 20. Tizanidine. PHYSICAL EXAMINATION: VITAL SIGNS: On presentation, blood pressure 122/63, heart rate 76, respiratory rate was 14, temperature 98.4, pain 9 out of 10, oxygen saturation 95 on room air. GENERAL APPEARANCE: The patient is alert, oriented, confused, not in any acute distress. HEENT: Eyes, normal conjunctivae. Anicteric. Moist oral mucosa. No JVD. RESPIRATORY: Bilateral air entry. No rales. No wheezes. Symmetric expansion. CARDIOVASCULAR: Normal rate, regular rhythm. No murmurs. No gallop. No edema. ABDOMEN: Soft. Normal bowel sounds. MUSCULOSKELETAL: Baseline range of motion. No sternal tenderness. SKIN: Warm, intact. No pallor. No rash. No redness. Peripheral pulses are present. Capillary refill seems to be intact. NEUROLOGICAL: No evidence of any new focal weakness. Baseline speech. Cranial nerves seems to be intact. PSYCHIATRIC: The patient is in good mood. No anxiety. Optimal judgment. IMAGING STUDIES: EKG was reviewed. The patient has normal sinus rhythm with a rate of 73, AK 156, QRS 84. Brain CT, no acute intracranial findings, opacification of visualized portion of bilateral maxillary sinuses, fluid in the right sphenoid air cell. Chest x-ray was reviewed. The patient has stable linear parenchymal changes bilaterally. No significant pneumonia or overt edema. LABORATORY DATA: Reviewed. The patient has a white count of 6.8, hemoglobin 9, previous hemoglobins have been around the same level, hematocrit 28.5, MCV 103, platelet count 355. Chemistry; sodium 138, potassium 5.2, chloride 100, carbon dioxide 30, anion gap 13, BUN 25, creatinine 1.21, previous creatinine was 0.74, GFR 43, glucose 103, lactic acid 1.4, calcium 8.5, total bilirubin 0.3, AST 22, ALT 11, alkaline phosphatase 190. Troponin I is less than 0.010. Serum total protein 6.3, albumin 3.4, globulin 2.9, TSH 3.1. UA was done and showed just white count 4 to 6. Toxicology was negative. Acetaminophen and plasma alcohol were negative. ASSESSMENT AND PLAN: The patient will be placed in the hospital with following medical problems: 1. Acute encephalopathy, unclear etiology, the patient has some fluctuation in the mentation that could be due to delirium, could be related to underlying infection that is not completely showing up. We will continue to monitor. We will try to find the underlying etiology. 2. Open surgical incision that is nonhealing. We will consult Wound Care. Wound culture was sent from the drainage of the wound prior to transfer to our hospital. These can be followed. To adjust the treatment accordingly. Neurosurgery has been consulted. We will follow recommendations. 3. Acute kidney injury. The patient has creatinine 1.21. The previous creatinine was 0.74. We will hydrate. We will monitor and we will treat accordingly. 4. History of coronary artery disease. This problem is chronic, seems to be stable, reconcile home medications. 5. Reported history of chronic obstructive pulmonary disease. This is chronic, seems to be stable, reconcile home medications. 6. Controlled hypertension, reconcile home medications. This is chronic, stable. 7. Deep venous thrombosis prophylaxis. Job ID: [id number]
[2018-10-07] MEDS: tiZANidine HCl 4 MG TAB PO SCH ×2 (05:44→14:36)
[2018-10-07] MEDS ORDERED: Spironolactone 25 MG TAB PO SCH (08:00)
[2018-10-07 08:19] LABS: #Basophils 0.1 thou/uL (0.0-0.2); #Eosinphils 0.5 thou/uL (0.0-0.7); #Lymphocytes 1.5 thou/uL (1.20-3.40); #Neutrophils 6.7 thou/uL (1.40-6.50); %Basophils 0.9 % (0.0-1.0); %Eosinophils 5.1 % (0.0-10.0); %Lymphocytes 15.4 % (21.0-51.0); %Monocytes 9.9 % (0.0-10.0); %Neutrophils 68.8 % (42.0-75.0); Hemoglobin 7.6 g/dL (12.0-16.0); Mean Corpuscular HGB CONC 31.4 g/dL (32.0-36.0); Mean Corpuscular Hemoglobin 32.5 pg (27.0-31.0); Mean Platelet Volume 6.4 fL (7.4-10.4); Platelet Count 547 thou/uL (130-400); RBC Distribution Width 13.4 % (11.5-14.5); Red Blood Cell (RBC) Count 2.35 mill/uL (4.20-5.40); White Blood Cell (WBC) Count 9.7 thou/uL (4.8-10.8)
[2018-10-07 08:25] LABS: Anion Gap 13 mmol/L (10-20); BUN (Urea Nitrogen) 17 mg/dL (9.8-20.1); Calc. Creatinine Clearance 71 mL/min (70-130); Calcium 8.4 mg/dL (7.8-10.44); Carbon Dioxide 25 mmol/L (23-31); Chloride 105 mmol/L (98-107); Estimated GFR-MDRD 73; Glucose 96 mg/dL (83-110); Potassium 4.8 mmol/L (3.5-5.1); Sodium 138 mmol/L (136-145)
[2018-10-07] MEDS ORDERED: Losartan 25 MG TAB PO SCH (09:00)
[2018-10-07] MEDS ORDERED: Citalopram 20 MG TAB PO SCH (09:00)
[2018-10-07] MEDS ORDERED: Ubidecarenone 50 MG CAP PO SCH (09:00)
[2018-10-07] MEDS ORDERED: Clopidogrel Bisulfate 75 MG TAB PO SCH (09:00)
[2018-10-07] MEDS: Sodium Chloride 0.9% 1,000 ML IV SCH (09:45)
[2018-10-07] MEDS: Carvedilol 3.125 MG TAB PO SCH ×2 (09:45→20:16)
[2018-10-07 13:44] VITALS: BMI 31.3
[2018-10-07] MEDS ORDERED: Sodium Chloride 0.9% 1,000 ML IV SCH (16:08)
[2018-10-07] MEDS ORDERED: tiZANidine HCl 4 MG TAB PO PRN (16:08)
--- NOTE | 2018-10-07 16:11 | PDOC.PN ---
- Subjective Encounter Start Date: 10/07/18 Encounter Start Time: 16:00 Subjective: f/u for encephalopathy likely due to polypharmacy now clearing. Feels -: ok overall and back to baseline. No new complaints. - Objective Resuscitation Status - Order Detail: 10/06/18 21:54 Resuscitation Status Routine Resuscitation Status: FULL: Full Resuscitation MAR Reviewed: Yes Vital Signs & Weight: Vital Signs (12 hours) Temp Pulse Resp BP BP Pulse Ox 10/07/18 11:00 97.8 F 58 L 16 96/61 100 10/07/18 08:00 97.6 F 60 16 96/60 96 10/07/18 04:37 98.0 F 70 18 110/64 92 L Weight Admit Weight 163 lb Weight 163 lb Result Diagrams: 10/07/18 07:21 10/07/18 07:21 Additional Labs: Microbiology 10/05/18 16:28 Venous blood - Right Hand Blood Culture - Preliminary NO GROWTH AT 48 HOURS 10/05/18 16:28 Venous blood - Left Hand Blood Culture - Preliminary NO GROWTH AT 48 HOURS 10/05/18 16:15 Back - Incision Bacterial Culture - Preliminary Presumptive Pseudo aeruginosa 10/05/18 15:20 Urine clean catch Urine Culture - Preliminary NO GROWTH AT 12 HOURS Laboratory Tests 10/06/18 10/06/18 10/06/18 17:05 17:05 17:05 Hgb 9.0 L MCV 103.0 H Plt Count 655 H Potassium 5.2 H Creatinine 1.21 H Procalcitonin TSH 3rd Generation 3.1115 10/06/18 10/07/18 22:07 07:21 Hgb MCV Plt Count 547 H Potassium Creatinine Procalcitonin 0.04 TSH 3rd Generation Radiology Reviewed by me: Yes (CT brain - no acute process) Phys Exam - Physical Examination Constitutional: NAD HEENT: PERRLA, sclera anicteric, oral pharynx no lesions Neck: no nodes, no JVD, supple, full ROM Respiratory: no wheezing, no rales, no rhonchi, clear to auscultation bilateral Cardiovascular: RRR, no significant murmur, no rub, gallop Gastrointestinal: soft, non-tender, no distention, positive bowel sounds Musculoskeletal: no edema, pulses present Neurological: normal sensation, moves all 4 limbs Psychiatric: A&O x 3 Skin: normal turgor, cap refill <2 seconds Dx/Plan (1) Acute metabolic encephalopathy Code(s): G93.41 - METABOLIC ENCEPHALOPATHY Status: Acute Comment: Likely due to #2, decrease Zanaflex, monitor Klonopin dosing, resolving (2) Polypharmacy Code(s): Z79.899 - OTHER CODING TECHNICIAN (CURRENT) DRUG THERAPY Status: Acute Comment: See above (3) S/P lumbar laminectomy Code(s): Z98.890 - OTHER SPECIFIED POSTPROCEDURAL STATES Status: Acute Comment: post-op from 09/17/18, pain control, local WCT to surgical site (4) COPD (chronic obstructive pulmonary disease) Status: Chronic Comment: Stable, O2 via NC, no exacerbation (5) Hypertension Code(s): I10 - ESSENTIAL (PRIMARY) HYPERTENSION Status: Chronic Qualifiers: Hypertension type: essential hypertension Qualified Code(s): I10 - Essential (primary) hypertension Comment: Continue Coreg, monitor serial BP (6) Macrocytic anemia Code(s): D53.9 - NUTRITIONAL ANEMIA, UNSPECIFIED Status: Chronic Comment: Repeat CBC in am - Plan PT/OT, clinical social work aide, out of bed/ambulate, DVT proph w/SCDs Stable overall -: Decrease Zanaflex dosing -: Monitor for polypharmcy with Klonopin and pain meds -: Decrease IVF 50ml/h -: OOB/PT * AM lab: CBC * Likely transfer to Rehab in am
--- NOTE | 2018-10-07 18:21 | CON ---
DATE OF CONSULTATION: This is Sonny Ackerman PA-C dictating a report for Curtis Mcgraw MD. This is a 30-minute initial patient evaluation, of which greater than 50% of the exam was spent counseling and coordinating the patient's care. Remainder of the exam was spent in review of patient's medical records and review of appropriate imaging studies. CHIEF COMPLAINT: Altered mental status with postoperative wound dehiscence. HISTORY OF PRESENT ILLNESS: Ms. Vivar is a pleasant 78-year-old female, who presents to [facility] as a transfer from rehab. The patient has a history of undergoing L3-L5 posterior lumbar fusion for spondylolisthesis with Dr. Mcgraw on 09/17/2018. The patient did well in regard to her postoperative recovery, but did have some multiple medical complications including a non-STEMI. She also had low oxygen saturation. Nonetheless, she has been in [facility] and was transferred back to [facility] in regard to some low blood pressure readings and some delirium. It was later found that the patient had acute kidney injury and urinalysis consistent with UTI. The patient did have also some superficial wound dehiscence that began 2 to 3 days ago and some wound dehiscence and slight amount of serous drainage from the incision. The patient continues to remain afebrile and within normal white count. Again, her urinalysis is positive for leuko esterase, white blood cells, and hyaline casts. Review of her head CT is negative for any intracranial hemorrhage or abnormality. PHYSICAL EXAMINATION: The patient is awake and alert. She does have some repetitive questioning and has what appears to be short-term memory loss, although, her GCS currently is 14. She states that she has no leg pain whatsoever and some moderate back pain, although, she believes this is improving daily. She has good strength in the bilateral lower extremities and is able to stand at the bedside. In regard to her incision, it is covered with an occlusive Tegaderm and a Telfa dressing. When this is removed, there is a small amount of drainage on the dressing, but no active drainage from the incision. It is consistent with superficial wound dehiscence throughout the entirety of the incision, but no significant surrounding erythema. There is some fibrinous exudate formation at the most inferior aspect of the incision roughly 2 cm in area. There does not appear to be any type of concern for wound infection, but rather superficial wound dehiscence. There are interrupted Ethilon sutures closing the incision. There is no tenderness to palpation of the incision or surrounding tissues. IMPRESSION AND DIAGNOSIS: 1. Altered mental status, likely delirium related to urinary tract infection. 2. Acute kidney injury. 3. [id number] myocardial infarction and coronary artery disease, on Plavix. 4. Superficial wound dehiscence, status post L3-L5 laminectomies and fusion on 09/17/[address] Mcgraw. PLAN: At this time, I have started the patient on Bactrim that will provide coverage for both her UTI as well as her wound dehiscence. I do not believe that the incision is infected nor do I believe that we need to take her back for any type of revision surgery in regard to her lumbar wound. I do agree with consults with wound care. At this time, we will leave her sutures in for the next few days, though likely, we will have these removed before she transitions back to [facility]. The patient neurologically is intact and doing well and I do believe that this is a minor setback in regard to wound dehiscence, but again we do not plan to take her back to surgery at this time. We will continue to monitor her and follow her while she has been admitted. Please call with any changes in the patient's neurologic status. Job ID: [id number]
[2018-10-07 20:34] VITALS: BP 143/63; TEMP 98.7
[2018-10-07] MEDS ORDERED: Lactinex Tablet PO SCH (21:00)
[2018-10-07] MEDS ORDERED: Sulfameth/Trimethoprim DS 800-160mg TAB PO SCH (21:00)
--- NOTE | 2018-10-08 03:17 | DIS ---
DATE OF ADMISSION: 10/06/2018 DATE OF DISCHARGE: 10/07/2018 DISCHARGE DIAGNOSES: 1. Acute metabolic encephalopathy secondary to #2. 2. Polypharmacy. 3. Status post lumbar laminectomy, 09/17/2018. 4. Chronic obstructive pulmonary disease without exacerbation. 5. Hypertension, stable. 6. Macrocytic anemia, chronic and stable. CONSULTATIONS: Dr. Mcgraw with neurosurgical service. PERTINENT LAB AND X-RAY FINDINGS: Creatinine ranged between 0.77 to 1.21. Estimated GFR ranged between 43 to 73. Lactic acid level 1.4. TSH 3.11. Procalcitonin 0.04. CBC showed a white blood cell count ranged between 6.8 to 9.7, hemoglobin ranged between 7.6 to 9.0, platelet count ranged between 547 to 655. Urine culture dated 10/05/2018, showed no growth at 36 hours. Wound culture from the lumbar spine dated 10/05/2018, showed presumptive Pseudomonas aeruginosa. Blood cultures x2 dated 10/05/2018, showed no growth at [address] of the brain without contrast dated 10/06/2018, showed no acute intracranial process. Portable chest x-ray dated 10/06/2018, showed chronic changes without acute infiltrate. CT angiogram of the chest dated 10/05/2018, showed no evidence for pulmonary embolus. Bilateral lower extremity venous Doppler study dated 09/28/2018, showed no evidence for DVT. HOSPITAL COURSE: The patient was observed after initially presenting with altered mental status and confusion in the context of polypharmacy and Zanaflex. The patient is status post lumbar laminectomy, 09/17/2018, undergoing acute inpatient rehabilitation. The patient was placed on IV fluids and underwent CT imaging of the brain showing no acute process. No specific evidence of focal process to explain the patient's presentation. The patient did undergo evaluation due to small wound dehiscence of the lumbar spine by the neurosurgical service with recommendations for oral Bactrim and local wound care. The patient clinically improved in less than 12 hours with modification to her chronic medication regimen. The patient was alert and oriented x3 by the time of discharge. The patient received IV fluids after mild acute kidney injury was noted, returning to baseline renal function prior to discharge. Overall, the patient did remain clinically stable throughout the hospital course, tolerating regular oral intake and voiding appropriately. I have examined the patient at the time of discharge and discussed followup instructions. The patient verbalized understanding and in agreement and ready for discharge on 10/07/2018. DISCHARGE MEDICATIONS: 1. Vitamin C 1000 mg p.o. daily. 2. Dulcolax 10 mg per rectum daily p.r.n. 3. Calcium carbonate 500 mg 1 to 2 tablets p.o. q.6 hours p.r.n. 4. Coreg 6.25 mg p.o. b.i.d. 5. Celexa 20 mg p.o. daily. 6. Klonopin 3 mg p.o. at bedtime. 7. Catapres 0.1 mg p.o. q.6 hours as needed for systolic blood pressure greater than or equal to 180. 8. Zetia 10 mg p.o. daily. 9. Folic acid 1 mg p.o. daily. 10. Gabapentin 100 mg p.o. at bedtime. 11. DuoNeb 3 mL nebulized t.i.d. p.r.n. 12. Lactobacillus 1 capsule p.o. b.i.d. 13. Loratadine 10 mg p.o. daily. 14. Cozaar 50 mg p.o. daily. 15. Brandt-3 fatty acids 1 capsule p.o. b.i.d. 16. Protonix 40 mg 1 tablet p.o. daily. 17. Sulfasalazine 500 mg p.o. b.i.d. Resume on 10/15/2018. 18. Coenzyme Q10 100 mg p.o. daily. 19. Plavix 75 mg 1 tablet p.o. daily. 20. Plavix 81 mg p.o. daily. 21. Spironolactone 25 mg p.o. q.a.m. 22. Bactrim DS one tablet p.o. b.i.d. 23. Zanaflex 4 mg p.o. b.i.d. p.r.n. Monitor closely due to sedation and altered mental status. FOLLOWUP: The patient may follow up with her primary care provider, Michael Ivan within 7 days of discharge. The patient will follow up with neurosurgical services including Dr. Curtis Mcgraw. CONDITION ON DISCHARGE: Stable. ACTIVITY: Ad-cheikh. DIET: Regular. CODE STATUS: Full. DISPOSITION: Transfer to acute inpatient rehabilitation with [facility], 10/07/2018. Job ID: [id number]
== END 2018-10-07 20:53 ==
LOC: ERS 16:15 → T4-A 18:40
PROVIDERS: ADMIT Hospitalist; ATTEND Hospitalist
DX: G92 Toxic encephalopathy (principal); T50.905A Adverse effect of unspecified drugs, medicaments and biological substances, initial encounter; I25.10 Atherosclerotic heart disease of native coronary artery without angina pectoris; M19.90 Unspecified osteoarthritis, unspecified site; G89.29 Other chronic pain; M54.9 Dorsalgia, unspecified; J44.9 Chronic obstructive pulmonary disease, unspecified; K21.9 Gastro-esophageal reflux disease without esophagitis; I10 Essential (primary) hypertension; F32.9 Major depressive disorder, single episode, unspecified; N17.9 Acute kidney failure, unspecified; I25.2 Old myocardial infarction; T81.31XA Disruption of external operation (surgical) wound, not elsewhere classified, initial encounter; D53.9 Nutritional anemia, unspecified; Z79.02 Long term (current) use of antithrombotics/antiplatelets; Z79.82 Long term (current) use of aspirin; Z79.899 Other long term (current) drug therapy; Z86.73 Personal history of transient ischemic attack (TIA), and cerebral infarction without residual deficits; Z95.5 Presence of coronary angioplasty implant and graft; Z98.1 Arthrodesis status
CPT/HCPCS: 70450; 71045; 80048; 80307; 83605; 84145; 84484; 85025; 93005; 96360; 96361 ×3; 97139; 99285; G0378 ×2; 36415; 80053; 81003; 81015; 84443; A4353

== ENCOUNTER 2018-10-28 13:04 | Outpatient (CLI) | payer MEDICARE, OTHER ==
--- NOTE | 2018-10-28 13:33 | RAD ---
LUMBAR SPINE RADIOGRAPHS TWO VIEWS: 10/28/2018 PROVIDED CLINICAL HISTORY: Back pain. COMPARISON: 07/15/2018 FINDINGS: Five [id number] lumbar-type vertebral bodies are demonstrated. Bilateral pedicle screws and jose carlos tical interconnecting rods are now noted, spanning L3 through L5, with associated laminectomy changes of L3 and L4. No evidence for hardware loosening or migration. Lumbar alignment appears unchanged. Vertebral body heights appear preserved. Disk space narrowing at L4-L5 is again seen. The visuali zed pedicles appear intact. The SI joints appear unremarkable. A dorsal column stimulator device is redemonstrated. IMPRESSION: Interval postoperative change, as above. POS: [facility]
== END 2018-10-28 13:05 | disposition home or self-care (01) ==
LOC: TBSIIMAG 13:04
PROVIDERS: ATTEND Surgery
DX: M54.5 Low back pain (principal); Z98.890 Other specified postprocedural states
CPT/HCPCS: 72100